=== PATIENT | male | born 1945 | race Caucasian/White ===

== ENCOUNTER 2019-05-06 17:06 | Emergency (ER) | payer MEDICAID, SELFPAY ==
[2019-05-06 17:11] VITALS: BP 153/97; PULSE 115; RESP 22; TEMP 37.3; O2SAT 97
[2019-05-06] MEDS: ONDANSETRON 4 MG/2 ML INJ IV ×2 (17:51→20:16)
[2019-05-06] MEDS: SODIUM CHLORIDE 0.9% 1,000 ML 250 ML IV (17:55)
[2019-05-06 17:56] LABS: Add Manual Diff / Slide Review NO; Basophils Absolute Auto 0 /uL (0-100); Basophils Percent Auto 0.2 % (0-2); Eosinophils Absolute Auto 0 /uL (0-450); Hematocrit 49.8 % (41-53); Hemoglobin 17.3 g/dL (13.5-17.5); Lymphocytes Absolute Auto 1000 /uL (1100-4500); Mean Corpuscular HGB Conc 34.8 % (30-36); Mean Corpuscular Hemoglobin 32.2 PG (26-34); Mean Corpuscular Volume 92.6 fL (80-100); Monocytes Absolute Auto 700 /uL (0-900); Monocytes Percent Auto 4.4 % (3-14); Neutrophils Absolute Auto 14600 /uL (1500-7000); Neutrophils Percent Auto 89.4 % (50-75); Platelet Count 274 X10^3/uL (150-400); Red Blood Cell Count 5.38 X10^6/uL (4.5-5.9); Red Cell Distribution Width 13.7 % (11.6-14.8); White Blood Cell Count 16.4 X10^3/uL (4.5-11.0)
[2019-05-06] MEDS: MORPHINE 4 MG/ML INJ IV (17:56)
[2019-05-06 17:58] LABS: Alanine Aminotransferase 22 IU/L (<50); Albumin 4.4 g/dL (3.5-5.0); Albumin Globulin Ratio 1.1 (1.0-2.8); Alkaline Phosphatase 104 U/L (38-126); Aspartate Aminotransferase 28 IU/L (17-59); BUN Creatinine Ratio 18.6 (6-22); Bilirubin Total 1.5 mg/dL (0.2-1.3); Blood Urea Nitrogen 13 mg/dL (9-20); Calcium 8.9 mg/dL (8.4-10.2); Carbon Dioxide 23 mmol/L (22-32); Chloride 90 mmol/L (98-107); Estimated Glomerular Filt Rate > 60.0 mL/min (>60); Glucose 218 mg/dL (80-110); HEMOLYSIS 17 (0-50); Lipase 30 U/L (23-300); Potassium 3.5 mmol/L (3.4-5.1); Sodium 129 mmol/L (137-145); Total Protein 8.4 g/dL (6.3-8.2)
[2019-05-06 18:00] VITALS: BP 176/97; PULSE 103; RESP 16; O2SAT 97
--- NOTE | 2019-05-06 18:06 | ED_ITS ---
HPI - Abdominal Pain General Chief Complaint: Abdominal Pain Stated Complaint: Nausea, Stomach Pains, Trouble Urinating Time Seen by Provider: 05/06/19 18:05 Source: patient and family Mode of arrival: Ambulatory Limitations: no limitations History of Present Illness HPI narrative: Patient is a 73-year-old male. States he has no medical problems. This is most likely because he does not see a primary provider. T akes no medications. Approximately 10 days ago he had a gradual onset within several hours of confusion, head periods of times where he was hallucinating. No balance issues. Is was hearing voices and seeing people and hearing music. He did not seek medical attention. He is here in the emergency department with his sister who stated that those symptoms lasted approximately 5-7 days and then completely resolved. He has never had anything like them in the past. He denies any drug or alcohol use. For a short period of time during that event he states that he has little memory of the event but another portions he has no memory issues. He is also here because over the past 3 days he has increasing abdominal pain and problems urinating with nausea. No fevers. Related Data Previous Rx's Medication Instructions Recorded famotidine [Pepcid] 20 mg PO DAILY #60 tab 05/06/19 ondansetron 4 mg PO Q6H PRN #10 tab 05/06/19 sucralfate [Carafate] 10 ml PO QID 7 Days #280 ml 05/06/19 Allergies Allergy/AdvReac Type Severity Reaction Status Date / Time No Known Drug Allergies Allergy Verified 05/06/19 17:50 Review of Systems Constitutional Constitutional: Denies fever(s), Denies headache(s) and Denies weakness Eyes Eyes: Denies change in vision and Denies diplopia ENT Ears, Nose, Mouth, and Throat: Denies headache(s), Denies disequilibrium, Denies sinus pressure and Denies sore throat Cardiovascular Cardiovascular: Denies chest pain, Denies syncope and Denies dyspnea Respiratory Respiratory: Denies dyspnea Gastrointestinal Gastrointestinal: Reports abdominal pain, Denies change in stool character, Reports nausea and Denies vomiting Genitourinary Genitourinary: Denies hematuria and Reports difficulty urinating Musculoskeletal Musculoskeletal: Denies abnormal gait, Denies back pain and Denies arthralgias Integumentary/Breasts Skin/Breast: Denies lesions and Denies rash Neurologic Neurologic: Denies abnormal movements, Denies abnormal gait, Reports behavioral changes, Reports confusion, Denies syncope, Denies headache(s), Denies restless legs, Denies paresthesias, Denies disequilibrium and Denies weakness Psychiatric Psychiatric: Denies anxiety, Reports behavioral changes, Reports confusion, Denies depression, Denies irritability, Reports visual hallucinations, Reports hallucinations, Denies homicidal ideation and Denies suicidal ideation Hematologic/Lymphatic Hematologic/Lymphatic: Denies easy bleeding and Denies easy bruising Allergic/Immunologic Allergic/Immunologic: Denies urticaria Patient History Medical History Patient denies medical problems (Acute) alcohol intake frequency: 0-2 drinks per day Alcohol type: wine Exam Initial Vital Signs Initial Vital Signs: Vital Signs Temperature 99.1 F 05/06/19 17:11 Pulse Rate 115 H 05/06/19 17:11 Respiratory Rate 22 05/06/19 17:11 Blood Pressure 153/97 H 05/06/19 17:11 Pulse Oximetry 97 05/06/19 17:11 Const General: cooperative, comfortable, well developed and well groomed Limitations: mental status not altered HENMT Head: normal to inspection and normocephalic Ears: hearing grossly normal bilaterally Eyes Pupils: PERRL Resp Effort & Inspection: normal respiratory effort Auscultation: clear to auscultation bilaterally Cardio Rate: tachycardic Rhythm: regular rhythm GI Inspection: non-distended Palpation: soft, No firm, No guarding and tender (Diffusely tender) Back/Spine/Pelvis Back: No CVA tenderness Skin Lesions: no lesions Rashes: no rashes Neuro General: alert, awake and oriented x3 Cranial Nerves: CN's II-XI intact bilaterally Cognition: normal cognition Speech: speech normal Gait: normal gait Motor: muscle tone normal throughout Sensory Exam: no sensory deficits noted Extrem General: normal to inspection and capillary refill normal Psych Appearance: grossly normal and well kempt Scores GCS [place] coma scale eye opening: Spontaneous Chan coma scale verbal response: Orientated Chan coma scale motor response: Obey commands [place] coma scale total score: 15 Course Orders Ordered: ED Orders 05/06/19 17:16 EKG-12 Lead Stat 05/06/19 17:30 Acetaminophen Stat Ammonia (NH3) Stat Complete Blood Count AUTO DIFF Stat Comprehensive Metabolic Panel Stat Ethanol (ETOH) Stat Lactate (Lactic Acid) Stat Lipase Stat Procalcitonin Stat Thyroid Stimulating Hormone Stat Troponin I Stat 05/06/19 18:07 CT abdomen pelvis w con Stat CT head/brain wo con Stat 05/06/19 19:00 Blood Culture Stat 05/06/19 19:55 XR chest 1V Stat 05/06/19 20:07 Urine Microscopic Stat Discontinued Medications Al Hydrox/Mg Hydrox/Simethicone 20 ml/ Lidocaine HCl 15 ml 0 ml PO NOW ONE Stop: 05/06/19 21:25 Last Admin: 05/06/19 21:34 Dose: 45 ml Documented by: KAYA Sodium Chloride (Normal Saline 0.9%) 1,000 mls @ 250 mls/hr IV BOLUS ONE Stop: 05/06/19 21:53 Last Infusion: 05/06/19 20:24 Dose: 0 mls/hr Documented by: Infusion: 05/06/19 19:15 Dose: 1,000 mls/hr Documented by: Admin: 05/06/19 17:55 Dose: 250 mls/hr Documented by: KAYA Sodium Chloride (Normal Saline 0.9%) 1,000 mls @ 1,000 mls/hr IV BOLUS ONE Stop: 05/06/19 21:11 Last Infusion: 05/06/19 21:31 Dose: 0 mls/hr Documented by: Admin: 05/06/19 20:24 Dose: 1,000 mls/hr Documented by: KAYA Ketorolac Tromethamine (Toradol) 30 mg IV NOW ONE Stop: 05/06/19 20:13 Last Admin: 05/06/19 20:16 Dose: 30 mg Documented by: KAYA Morphine Sulfate (Morphine) 4 mg IV NOW ONE Stop: 05/06/19 17:45 Last Admin: 05/06/19 17:56 Dose: 4 mg Documented by: KAYA Ondansetron HCl (Zofran) 4 mg IV NOW ONE Stop: 05/06/19 17:44 Last Admin: 05/06/19 17:51 Dose: 4 mg Documented by: STACEY Ondansetron HCl (Zofran) 4 mg IV NOW ONE Stop: 05/06/19 20:13 Last Admin: 05/06/19 20:16 Dose: 4 mg Documented by: KAYA Tramadol HCl (Ultram 50mg Prepack) 1 bottle MISC SEEINSTR ONE Stop: 05/06/19 21:27 Last Admin: 05/06/19 21:35 Dose: 1 bottle Documented by: KAYA Vital Signs Vital signs: Vital Signs - 8 hr 05/06/19 18:00 05/06/19 19:00 05/06/19 19:40 Pulse Rate 103 H 99 H 97 H Respiratory Rate 16 18 18 Blood Pressure [Right Arm] 176/97 H 172/94 H 172/92 H Pulse Oximetry 97 98 96 05/06/19 20:04 05/06/19 21:15 Pulse Rate 98 H 90 Respiratory Rate 21 23 Blood Pressure [Right Arm] 178/111 H 122/71 Pulse Oximetry 99 98 MDM - Abdominal Pain Medical Records Attestation: I reviewed the patient's medical records. Lab Data Attestation: I reviewed the patient's lab results. Result diagrams: 05/06/19 17:30 05/06/19 17:30 Labs: Lab Results 05/06/19 05/06/19 05/06/19 Range/Units 17:30 17:30 17:30 WBC 16.4 H (4.5-11.0) X10^3/uL RBC 5.38 (4.5-5.9) X10^6/uL Hgb 17.3 (13.5-17.5) g/dL Hct 49.8 (41-53) % MCV 92.6 (80-100) fL MCH 32.2 (26-34) PG MCHC 34.8 (30-36) % RDW 13.7 (11.6-14.8) % Plt Count 274 (150-400) X10^3/uL Neut % (Auto) 89.4 H (50-75) % Lymph % (Auto) 6.0 L (25-40) % [place] % (Auto) 4.4 (3-14) % Eos % (Auto) 0.0 L (2-4) % Baso % (Auto) 0.2 (0-2) % Neut # (Auto) 45472 H (6309-6782) /uL Lymph # (Auto) 1000 L (6901-7028) /uL [place] # (Auto) 700 (0-900) /uL Eos # (Auto) 0 (0-450) /uL Baso # (Auto) 0 (0-100) /uL Sodium 129 L (137-145) mmol/L Potassium 3.5 (3.4-5.1) mmol/L Chloride 90 L (98-107) mmol/L Carbon Dioxide 23 (22-32) mmol/L BUN 13 (9-20) mg/dL Creatinine 0.70 (0.66-1.25) mg/dL Estimated GFR > 60.0 (>60) mL/min BUN/Creatinine Ratio 18.6 (6-22) Glucose 218 H (80-110) mg/dL Lactate (0.7-2.1) mmol/L Calcium 8.9 (8.4-10.2) mg/dL Total Bilirubin 1.5 H (0.2-1.3) mg/dL AST 28 (17-59) IU/L ALT 22 (<50) IU/L Alkaline Phosphatase 104 (38-126) U/L Ammonia (9-30) umol/L Troponin I < 0.012 (0.01-0.034) ng/mL Total Protein 8.4 H (6.3-8.2) g/dL Albumin 4.4 (3.5-5.0) g/dL Globulin 4.0 (1.7-4.1) g/dL Albumin/Globulin Ratio 1.1 (1.0-2.8) Lipase 30 (23-300) U/L Procalcitonin < 0.05 (<0.5) ng/mL TSH (0.47-4.68) uIU/mL Urine RBC (0-5/HPF) Urine WBC (0-5/HPF) Ur Squamous Epith Cells (0-5/HPF) Urine Bacteria (None) Ur Culture Indicated? Micro UA Comment Acetaminophen (10-30) ug/mL Ethyl Alcohol ( - 10) mg/dL 05/06/19 05/06/19 05/06/19 Range/Units 17:30 17:30 17:30 WBC (4.5-11.0) X10^3/uL RBC (4.5-5.9) X10^6/uL Hgb (13.5-17.5) g/dL Hct (41-53) % MCV (80-100) fL MCH (26-34) PG MCHC (30-36) % RDW (11.6-14.8) % Plt Count (150-400) X10^3/uL Neut % (Auto) (50-75) % Lymph % (Auto) (25-40) % [place] % (Auto) (3-14) % Eos % (Auto) (2-4) % Baso % (Auto) (0-2) % Neut # (Auto) (8701-0757) /uL Lymph # (Auto) (1319-2719) /uL [place] # (Auto) (0-900) /uL Eos # (Auto) (0-450) /uL Baso # (Auto) (0-100) /uL Sodium (137-145) mmol/L Potassium (3.4-5.1) mmol/L Chloride (98-107) mmol/L Carbon Dioxide (22-32) mmol/L BUN (9-20) mg/dL Creatinine (0.66-1.25) mg/dL Estimated GFR (>60) mL/min BUN/Creatinine Ratio (6-22) Glucose (80-110) mg/dL Lactate 2.2 H (0.7-2.1) mmol/L Calcium (8.4-10.2) mg/dL Total Bilirubin (0.2-1.3) mg/dL AST (17-59) IU/L ALT (<50) IU/L Alkaline Phosphatase (38-126) U/L Ammonia < 9.0 L (9-30) umol/L Troponin I (0.01-0.034) ng/mL Total Protein (6.3-8.2) g/dL Albumin (3.5-5.0) g/dL Globulin (1.7-4.1) g/dL Albumin/Globulin Ratio (1.0-2.8) Lipase (23-300) U/L Procalcitonin (<0.5) ng/mL TSH 1.79 (0.47-4.68) uIU/mL Urine RBC (0-5/HPF) Urine WBC (0-5/HPF) Ur Squamous Epith Cells (0-5/HPF) Urine Bacteria (None) Ur Culture Indicated? Micro UA Comment Acetaminophen (10-30) ug/mL Ethyl Alcohol ( - 10) mg/dL 01/05/06/19 05/06/19 Range/Units 17:30 20:07 20:34 WBC (4.5-11.0) X10^3/uL RBC (4.5-5.9) X10^6/uL Hgb (13.5-17.5) g/dL Hct (41-53) % MCV (80-100) fL MCH (26-34) PG MCHC (30-36) % RDW (11.6-14.8) % Plt Count (150-400) X10^3/uL Neut % (Auto) (50-75) % Lymph % (Auto) (25-40) % [place] % (Auto) (3-14) % Eos % (Auto) (2-4) % Baso % (Auto) (0-2) % Neut # (Auto) (4320-7477) /uL Lymph # (Auto) (8751-2723) /uL [place] # (Auto) (0-900) /uL Eos # (Auto) (0-450) /uL Baso # (Auto) (0-100) /uL Sodium (137-145) mmol/L Potassium (3.4-5.1) mmol/L Chloride (98-107) mmol/L Carbon Dioxide (22-32) mmol/L BUN (9-20) mg/dL Creatinine (0.66-1.25) mg/dL Estimated GFR (>60) mL/min BUN/Creatinine Ratio (6-22) Glucose (80-110) mg/dL Lactate 1.9 (0.7-2.1) mmol/L Calcium (8.4-10.2) mg/dL Total Bilirubin (0.2-1.3) mg/dL AST (17-59) IU/L ALT (<50) IU/L Alkaline Phosphatase (38-126) U/L Ammonia (9-30) umol/L Troponin I (0.01-0.034) ng/mL Total Protein (6.3-8.2) g/dL Albumin (3.5-5.0) g/dL Globulin (1.7-4.1) g/dL Albumin/Globulin Ratio (1.0-2.8) Lipase (23-300) U/L Procalcitonin (<0.5) ng/mL TSH (0.47-4.68) uIU/mL Urine RBC 0-1/hpf (0-5/HPF) Urine WBC 0-1/hpf (0-5/HPF) Ur Squamous Epith Cells 0-1 /hpf (0-5/HPF) Urine Bacteria None seen (None) Ur Culture Indicated? Cult not indicated Micro UA Comment Microscopic normal Acetaminophen < 10 L (10-30) ug/mL Ethyl Alcohol < 10 ( - 10) mg/dL Point of care testing: Urine Dip Bedside Urine Glucose 250 mg/dl Bedside Urine Bilirubin - Negative Bedside Urine Ketone +++ 80 Urine Specific [place] 1.005 Bedside Urine Occult Blood +/- Bedside Urine pH 6.5 Bedside Urine Protein + 30 Bedside Urine Urobilinogen - Negative Bedside Urine Nitrite - Negative Bedside Urine Leukocytes - Negative Esterase Imaging Data CT scan - abdomen/pelvis: Radiologist's Impression: [address] [address] [address] Scan Report Signed Patient: Jony Mayen RMR#: [id number] : 5Acct:[id number] Age/Sex: 73 / MDate of Service: 05/06/19 Loc: ED Accession Number: [id number] Procedure: CT abdomen pelvis w con Ordering Provider: Chris Navarro D.O. PROCEDURE: CT ABDOMEN PELVIS W CON INDICATIONS: Diffuse abdominal pain TECHNIQUE: After the administration of intravenous contrast, 5 mm thick sections acquired from the diaphragm to the symphysis. 5 mm coronal and sagittal reformats were acquired. For radiation dose reduction, the following was used: automated exposure control, adjustment of mA and/or kV according to patient size. COMPARISON: None. FINDINGS: Image quality: Excellent. ABDOMEN: Lung bases: 6 mm diameter nodule within the right posterior lung base is present.. Heart size is normal. Solid organs: Liver is normal in size and enhancement. Hepatic contour is slightly nodular, suggestive of cirrhosis. Gallbladder is within normal limits. Biliary system is non dilated. Pancreas enhances normally. Spleen is normal in size and enhancement. No adrenal nodules. Kidneys demonstrate normal size and enhancement, without hydronephrosis. Peritoneum and bowel: Distal esophagus is thickened, and there is a small amount of surrounding fluid. Stomach and small bowel are grossly unremarkable. Appendix is normal.: Is within normal limits. No free fluid or air. Nodes and vessels: No retroperitoneal or mesenteric adenopathy by size criteria. Aorta and inferior vena cava are normal in size. Miscellaneous: No ventral hernias. PELVIS: Genitourinary: Bladder wall thickness is normal. Miscellaneous: No inguinal hernias or adenopathy. Bones: No suspicious bony lesions. No vertebral body compression fractures. IMPRESSION: 1. Indeterminate right lung base nodule. Followup is recommended as below. 2. Findings suggestive of esophagitis. Clinical correlation recommended. 3. Normal appendix. 4. Findings suggestive of cirrhosis. Clinical correlation recommended. Fleischner Society criteria for SOLID lung nodule followup. Nodule size (mm)Low-risk patientHigh-risk patient?4No follow-up neededFollow-up at 12 mo; if no change, no further follow-up>[id number] CT at 12 mo; if no change, no further follow-up needed.Initial follow-up CT at 6-12 mo, then 18-24 mo if no change. >6-8Initial follow-up CT at 6-12 mo, then 18-24 mo if no change. Initial follow- up CT at 3-6 mo, then 9-12 mo and 24 mo if no change. >8Follow-up CT at 3, 9, 24 mo. Or PET and/or biopsy.Same as for low-risk pts. Dictated by: Eloy Welch M.D. on 05/06/2019 at 18:31 Approved by: Eloy Welch M.D. on 05/06/2019 at 18:34 CT scan - head: Radiologist's Impression: [place] [address] CT Scan Report Signed Patient: Jony Mayen RMR#: [id number] : 5Acct:[id number] Age/Sex: 73 / MDate of Service: 05/06/19 Loc: ED Accession Number: [id number] Procedure: CT head/brain wo con Ordering Provider: Chris Navarro D.O. PROCEDURE: CT HEAD/BRAIN WO CON INDICATIONS: Confusion TECHNIQUE: Noncontrast 4.5 mm thick angled axial sections acquired from the foramen magnum to the vertex, with coronal and sagittal reformats. For radiation dose reduction, the following was used: automated exposure control, adjustment of mA and/or kV according to patient size. COMPARISON: None. FINDINGS: Image quality: Excellent. CSF spaces: Basal cisterns are patent. No extra-axial fluid collections. The ventricles are symmetric in size and shape. Brain: No intracranial bleeds or masses. There is cerebral volume loss for a ge, with resultant ventricular and sulcal prominence. There are periventricular and deep white matter chronic small vessel ischemic changes. There is intracranial internal carotid artery atherosclerosis. Skull and face: Calvarium and visualized facial bones appear intact, without suspicious lesions. Sinuses: Visualized sinuses and mastoids are clear. IMPRESSION: No acute intracranial abnormality. Dictated by: Eloy Welch M.D. on 05/06/2019 at 18:30 Approved by: Eloy Welch M.D. on 05/06/2019 at 18:31 Chest x-ray: Radiologist's Impression: [place] [address] XRay Report Signed Patient: Jony Mayen RMR#: [id number] : 5Acct:[id number] Age/Sex: 73 / MDate of Service: 05/06/19 Loc: ED Accession Number: [id number] Procedure: XR chest 1V Ordering Provider: Chris Navarro D.O. PROCEDURE: XR CHEST 1V INDICATIONS: eval for Pneumonia TECHNIQUE: One view of the chest was acquired. COMPARISON: None. FINDINGS: Surgical changes and devices: None. Lungs and pleura: Lungs are clear. No pleural effusions or pneumothorax. Mediastinum: Mediastinal contours appear normal. Heart size is normal. Bones and chest wall: No suspicious bony lesions. Overlying soft tissues appear unremarkable. IMPRESSION: No acute process. Dictated by: Eloy Welch M.D. on 05/06/2019 at 20:17 Approved by: Eloy Welch M.D. on 05/06/2019 at 20:18 ECG Data Attestation: I personally reviewed and interpreted this ECG as follows: Prior ECG tracings: not available for review Interpretation: Sinus tachycardia Ventricular rate of 105 Normal axis Normal QRS Normal QTC Nonspecific ST T wave changes MDM Narrative Medical decision making narrative: Patient is nontoxic appearing. S tachycardic and also has a leukocytosis. Lactate initially 2.2 but this improved with fluids. He was never hypotensive. Heart rate also improved with fluids. Chest x-ray is unremarkable. CT scan of the abdomen just shows what appears to be an esophagitis. Upon further questioning of asked him specifically where he was having abdominal pain in the states it was in the epigastric region. I asked if he has ever had any issues with reflux and he states that over the past couple days he has had more heartburn type symptoms. There were no other findings in the CT scan that would explain the leukocytosis or potential infection. Urin alysis is unremarkable. I did inform him of the incidental finding of the lung nodule. Informed him that he did need to follow-up with his primary doctor regarding this. He does not currently have a primary provider. He was provided phone number for the health resource is coronary to the hospital help him establish one. Uncertain the exact etiology of his hallucinations that he was having several days ago. Those have completely resolved. He is alert oriented x3 with a GCS of 15 currently. I have low suspicion for stroke. Low suspicion for CVA. He denies any drug or alcohol use. Physical exam is not consistent with meningitis. Once again he is nontoxic appearing. I feel that we should hold on any antibiotics secondary to a lack of a definitive diagnosis as to any sort of infection. Regard to his esophagitis will start him on Carafate and then start him on an H2 erika. He was given strict return precautions. He was okay with being discharged home. His sister was at bedside for all of these discussions. Discharge Plan Departure Patient Disposition: Home Clinical Impression: Esophagitis, Incidental pulmonary nodule Leukocytosis Qualifiers: Leukocytosis type: unspecified Qualified Code(s): D72.829 - Elevated white blood cell count, unspecified Discharge Date/Time: 05/06/19 21:48 Instructions: DI for Esophagitis Activity Restrictions/Additional Instructions: Tomorrow contact the health resource is coordinator here at the hospital at [phone]. They can help you establish a primary provider. Take the medications as directed. It is important that you may contact the primary provider to follow-up on the incidental pulmonary nodules that were found today. Return to the emergency department for any new or worsening symptoms Prescriptions: New sucralfate [Carafate] 100 mg/mL suspension 10 ml PO QID 7 Days Qty: 280 RF: 0 famotidine [Pepcid] 20 mg tablet 20 mg PO DAILY Qty: 60 RF: 0 ondansetron 4 mg tablet,disintegrating 4 mg PO Q6H PRN (Reason: nausea and vomiting) Qty: 10 RF: 0
[2019-05-06 18:10] LABS: Troponin I < 0.012 ng/mL (0.01-0.034)
[2019-05-06 18:23] LABS: Ammonia (NH3) < 9.0 umol/L (9-30)
[2019-05-06 18:24] LABS: Acetaminophen < 10 ug/mL (10-30); Ethanol (ETOH) < 10 mg/dL; Lactate (Lactic Acid) 2.2 mmol/L (0.7-2.1)
[2019-05-06 18:46] LABS: Procalcitonin < 0.05 ng/mL (<0.5)
[2019-05-06 18:54] LABS: Thyroid Stimulating Hormone 1.79 uIU/mL (0.47-4.68)
[2019-05-06 19:00] VITALS: BP 172/94; PULSE 99; RESP 18; O2SAT 98
[2019-05-06 19:40] VITALS: BP 172/92; PULSE 97; RESP 18; O2SAT 96
--- NOTE | 2019-05-06 19:43 | PC.NURSE ---
Pt's O2 sats fell to 86% while asleep, Put pt on 2L's of O2 Per nurse yoseph Gaffney
--- NOTE | 2019-05-06 19:55 | DI.RAD.S_ITS ---
PROCEDURE: XR CHEST 1V INDICATIONS: eval for Pneumonia TECHNIQUE: One view of the chest was acquired. COMPARISON: None. FINDINGS: Surgical changes and devices: None. Lungs and pleura: Lungs are clear. No pleural effusions or pneumothorax. Mediastinum: Mediastinal contours appear normal. Heart size is normal. Bones and chest wall: No suspicious bony lesions. Overlying soft tissues appear unremarkable. IMPRESSION: No acute process. Dictated by: Eloy Welch M.D. on 05/06/2019 at 20:17 Approved by: Eloy Welch M.D. on 05/06/2019 at 20:18
[2019-05-06 20:04] VITALS: BP 178/111; PULSE 98; RESP 21; O2SAT 99
[2019-05-06 20:13] LABS: Reflexed Lactate in 2 Hours Y
[2019-05-06] MEDS: KETOROLAC 60 MG/2 ML VIAL 30 MG IV (20:16)
[2019-05-06 20:18] LABS: Bacteria Urine None Seen
[2019-05-06] MEDS: SODIUM CHLORIDE 0.9% 1,000 ML 1000 ML IV (20:24)
[2019-05-06 20:27] LABS: Culture Indicated Urine Cult Not Indicated; RBC Urine 0-1/HPF (0-5/HPF); Squamous Epithelial Cell Urine 0-1 /HPF (0-5/HPF); Urine Comments Microscopic Normal; WBC Urine 0-1/HPF (0-5/HPF)
[2019-05-06 20:49] LABS: Lactate 2HR (Lactic Acid Rflx) 1.9 mmol/L (0.7-2.1)
[2019-05-06 21:15] VITALS: BP 122/71; PULSE 90; RESP 23; O2SAT 98
[2019-05-06] MEDS: MAG HYDROX/ALUMINUM/SIMETH SUS 20 ML, LIDOCAINE VISCOUS 2% 15 ML PO (21:34)
[2019-05-06] MEDS: TRAMADOL 50 MG PREPACK 1 BOTTLE MISC (21:35)
== END 2019-05-06 21:48 | disposition home or self-care (01) ==
PROVIDERS: Emergency Medicine; Emergency Provider Emergency Medicine
DX: K20.9 Esophagitis, unspecified (principal); R91.1 Solitary pulmonary nodule; D72.829 Elevated white blood cell count, unspecified; R10.9 Unspecified abdominal pain; R41.0 Disorientation, unspecified; R00.0 Tachycardia, unspecified; R39.198 Other difficulties with micturition; R11.10 Vomiting, unspecified
CPT/HCPCS: 36415; 70450; 71045; 74177; 80053; 80320; 80329; 81003; 81015; 82140; 83605; 83690; 84145; 84443; 84484; 85025; 87040; 93005; 96361; 96374; 96375; 99285; G0480; J1885; J2270; J2405; Q9967

== ENCOUNTER 2019-05-07 17:57 | Observation (INO) | payer MEDICAID, SELFPAY ==
[2019-05-07 18:00] VITALS: BP 201/101; PULSE 105; RESP 24; TEMP 36.6; O2SAT 97
--- NOTE | 2019-05-07 18:10 | ED.ABDPAIN ---
HPI - Abdominal Pain General Chief Complaint: Abdominal Pain Stated Complaint: pain, vomiting Time Seen by Provider: 05/07/19 18:07 Source: patient Mode of arrival: Ambulatory Limitations: no limitations History of Present Illness HPI narrative: 73-year-old male who I evaluated this emergency department approximately 24 hours ago for abdominal pain. Was discharged home with Carafate. Returns this evening for similar symptoms yesterday. He states that after he was discharged home he felt well. He was able to get up overnight take the dog for a walk. He woke up this morning feeling well. Did not eat anything this morning. Ran some errands. Stated that early afternoon he ate some soup and immediately afterwards had return of the epigastric pain that brought him in last evening. Had some significant nausea. He took the medications he was discharged home with to include pain medication and nausea medication and also reflux medication. He states that none of these worked. States the pain is somewhat worse than what it was last evening. Related Data Home Medications Medication Instructions Recorded Confirmed No Known Home Medications 05/07/19 05/07/19 Allergies Allergy/AdvReac Type Severity Reaction Status Date / Time No Known Drug Allergies Allergy Verified 05/06/19 17:50 Review of Systems Constitutional Constitutional: Denies fever(s) and Denies headache(s) ENT Ears, Nose, Mouth, and Throat: Denies headache(s) Cardiovascular Cardiovascular: Denies chest pain and Denies dyspnea Respiratory Respiratory: Denies dyspnea Gastrointestinal Gastrointestinal: Reports abdominal pain, Denies change in stool character, Reports nausea and Denies vomiting Genitourinary Genitourinary: Denies dysuria Musculoskeletal Musculoskeletal: Denies myalgias and Denies arthralgias Integumentary/Breasts Skin/Breast: Denies lesions and Denies rash Neurologic Neurologic: Denies behavioral changes and Denies headache(s) Psychiatric Psychiatric: Denies behavioral changes Hematologic/Lymphatic Hematologic/Lymphatic: Denies easy bleeding and Denies easy bruising Patient History Medical History Patient denies medical problems (Acute) Surgical History No pertinent past surgical history (Acute) Social History household members: other Smoking Status: Former smoker alcohol intake: current Smoking Status: Former smoker alcohol intake frequency: 0-2 drinks per day Alcohol type: wine Substance Use Type: does not use Exam Initial Vital Signs Initial Vital Signs: Vital Signs Temperature 97.8 F 05/07/19 18:00 Pulse Rate 105 H 05/07/19 18:00 Respiratory Rate 24 05/07/19 18:00 Blood Pressure 201/101 H 05/07/19 18:00 Pulse Oximetry 97 05/07/19 18:00 Const General: cooperative, comfortable, well developed and well groomed Nutritional Appearance: overweight Limitations: mental status not altered HENMA Head: normal to inspection Chest Chest: normal inspection of the chest Resp Effort & Inspection: normal respiratory effort Auscultation: clear to auscultation bilaterally Cardio Rate: tachycardic Rhythm: regular rhythm Pulses: radial pulses present GI Inspection: non-distended Palpation: soft, No firm, No guarding and tender Back/Spine/Pelvis Back: No CVA tenderness Skin Lesions: no lesions Rashes: no rashes Neuro General: alert, awake and oriented x3 Cognition: normal cognition Speech: speech normal Extrem General: normal to inspection, capillary refill normal and No edema Psych Appearance: grossly normal and well kempt Scores GCS Chan coma scale eye opening: Spontaneous [place] coma scale verbal response: Orientated [place] coma scale motor response: Obey commands Chan coma scale total score: 15 Course Orders Ordered: ED Orders 05/07/19 18:09 EKG-12 Lead Stat 05/07/19 18:25 Basic Metabolic Panel Stat Complete Blood Count AUTO DIFF Stat Ethanol (ETOH) Stat Hepatic (Liver) Panel Stat Ketones (Beta-Hydroxybutyrate) Stat Lactate (Lactic Acid) Stat Lipase Stat Procalcitonin Stat Troponin I Stat 05/07/19 18:28 US abdomen limited Stat 05/07/19 18:48 Urine Microscopic Stat 05/07/19 19:11 Arterial Blood Gas Stat 05/07/19 19:57 Arterial Blood Gas Stat Acetaminophen (Tylenol) 650 mg PO Q6HR PRN PRN Reason: Fever/Mild Pain (1-3) Bisacodyl (Dulcolax) 10 mg IN DAILY PRN PRN Reason: Constipation Docusate Sodium (Colace) 100 mg PO BID PRN PRN Reason: Constipation Enoxaparin Sodium (Lovenox) 40 mg SUBCUT DAILY DERECK Hydromorphone HCl (Dilaudid) 0.5 mg IV Q6H PRN PRN Reason: Pain, Moderate (4-6) Hydromorphone HCl (Dilaudid) 1 mg IV Q6HR PRN PRN Reason: Pain, Severe (7-10) Sodium Chloride (Normal Saline 0.9%) 1,000 mls @ 75 mls/hr IV CONT DERECK Last Admin: 05/08/19 01:50 Dose: 75 mls/hr Documented by: SANIA Metoclopramide HCl (Reglan) 10 mg IV Q6HR PRN PRN Reason: Nausea And Vomiting Naloxone HCl (Narcan) 0.2 mg IV Q2MIN PRN PRN Reason: Opiate Reversal Ondansetron HCl (Zofran) 4 mg IV Q6HR PRN PRN Reason: Nausea And Vomiting Last Admin: 05/08/19 00:05 Dose: 4 mg Documented by: SANIA Sodium Chloride (Normal Saline 0.9% Flush) 10 ml IV PRN PRN PRN Reason: Flush Last Admin: 05/08/19 01:50 Dose: 10 ml Documented by: Admin: 05/08/19 00:05 Dose: 10 ml Documented by: SANIA Sodium Chloride (Normal Saline 0.9% Flush) 10 ml IV BID DERECK Discontinued Medications Hydromorphone HCl (Dilaudid) 1 mg IV NOW ONE Stop: 05/07/19 19:28 Last Admin: 05/07/19 19:35 Dose: 1 mg Documented by: GAL Sodium Chloride (Normal Saline 0.9%) 1,000 mls @ 1,000 mls/hr IV BOLUS ONE Stop: 05/07/19 19:07 Last Infusion: 05/07/19 19:46 Dose: 0 mls/hr Documented by: Admin: 05/07/19 18:39 Dose: 1,000 mls/hr Documented by: GAL Metoclopramide HCl (Reglan) 10 mg IV NOW ONE Stop: 05/07/19 20:37 Last Admin: 05/07/19 20:56 Dose: 10 mg Documented by: GAL Morphine Sulfate (Morphine) 4 mg IV NOW ONE Stop: 05/07/19 18:11 Last Admin: 05/07/19 18:32 Dose: 4 mg Documented by: GAL Ondansetron HCl (Zofran) 4 mg IV NOW ONE Stop: 05/07/19 18:09 Last Admin: 05/07/19 18:37 Dose: 4 mg Documented by: GAL Ondansetron HCl (Zofran) 4 mg IV NOW ONE Stop: 05/07/19 19:28 Last Admin: 05/07/19 19:36 Dose: 4 mg Documented by: GAL Vital Signs Vital signs: Vital Signs - 8 hr 05/07/19 18:00 Temperature 97.8 F Pulse Rate 105 H Respiratory Rate 24 Blood Pressure 201/101 H Pulse Oximetry 97 MDM - Abdominal Pain Lab Data Attestation: I reviewed the patient's lab results. Result diagrams: 05/07/19 18:25 05/07/19 18:25 Labs: Lab Results 05/07/19 05/07/19 05/07/19 Range/Units 18:25 18:25 18:25 WBC 13.0 H (4.5-11.0) X10^3/uL RBC 5.39 (4.5-5.9) X10^6/uL Hgb 17.4 (13.5-17.5) g/dL Hct 50.0 (41-53) % MCV 92.8 (80-100) fL MCH 32.2 (26-34) PG MCHC 34.7 (30-36) % RDW 13.6 (11.6-14.8) % Plt Count 250 (150-400) X10^3/uL Neut % (Auto) 86.1 H (50-75) % Lymph % (Auto) 6.9 L (25-40) % Ponce % (Auto) 6.5 (3-14) % Eos % (Auto) 0.1 L (2-4) % Baso % (Auto) 0.4 (0-2) % Neut # (Auto) 70328 H (8849-5348) /uL Lymph # (Auto) 900 L (0569-3187) /uL Ponce # (Auto) 800 (0-900) /uL Eos # (Auto) 0 (0-450) /uL Baso # (Auto) 100 (0-100) /uL ABG pH (7.35-7.45) ABG pCO2 (35-45) mmHg ABG pO2 (80-100) mmHg ABG HCO3 (22-26) mmol/L ABG Total CO2 (21-31) mmol/L ABG O2 Saturation (95-100) % ABG Base Excess (-2-2) mmol/L FiO2 Sodium (137-145) mmol/L Potassium (3.4-5.1) mmol/L Chloride (98-107) mmol/L Carbon Dioxide (22-32) mmol/L BUN (9-20) mg/dL Creatinine (0.66-1.25) mg/dL Estimated GFR (>60) mL/min BUN/Creatinine Ratio (6-22) Glucose (80-110) mg/dL Hemoglobin A1c (4.0-6.0) % Lactate (0.7-2.1) mmol/L Calcium (8.4-10.2) mg/dL Total Bilirubin (0.2-1.3) mg/dL Conjugated Bilirubin (0.0-0.3) md/dL Unconjugated Bilirubin (0.0-1.1) mg/dL AST (17-59) IU/L ALT (<50) IU/L Alkaline Phosphatase (38-126) U/L Troponin I 0.016 (0.01-0.034) ng/mL Total Protein (6.3-8.2) g/dL Albumin (3.5-5.0) g/dL Globulin (1.7-4.1) g/dL Albumin/Globulin Ratio (1.0-2.8) Lipase 49 D (23-300) U/L Procalcitonin < 0.05 (<0.5) ng/mL Urine RBC (0-5/HPF) Urine WBC (0-5/HPF) Ur Squamous Epith Cells (0-5/HPF) Urine Bacteria (None) Ur Culture Indicated? Ethyl Alcohol < 10 ( - 10) mg/dL Ketones (<0.27) mmol/L 05/07/19 05/07/19 05/07/19 Range/Units 18:25 18:25 18:25 WBC (4.5-11.0) X10^3/uL RBC (4.5-5.9) X10^6/uL Hgb (13.5-17.5) g/dL Hct (41-53) % MCV (80-100) fL MCH (26-34) PG MCHC (30-36) % RDW (11.6-14.8) % Plt Count (150-400) X10^3/uL Neut % (Auto) (50-75) % Lymph % (Auto) (25-40) % Ponce % (Auto) (3-14) % Eos % (Auto) (2-4) % Baso % (Auto) (0-2) % Neut # (Auto) (4048-8622) /uL Lymph # (Auto) (6166-3327) /uL Ponce # (Auto) (0-900) /uL Eos # (Auto) (0-450) /uL Baso # (Auto) (0-100) /uL ABG pH (7.35-7.45) ABG pCO2 (35-45) mmHg ABG pO2 (80-100) mmHg ABG HCO3 (22-26) mmol/L ABG Total CO2 (21-31) mmol/L ABG O2 Saturation (95-100) % ABG Base Excess (-2-2) mmol/L FiO2 Sodium 132 L (137-145) mmol/L Potassium 3.6 (3.4-5.1) mmol/L Chloride 94 L (98-107) mmol/L Carbon Dioxide 23 (22-32) mmol/L BUN 16 (9-20) mg/dL Creatinine 0.80 (0.66-1.25) mg/dL Estimated GFR > 60.0 (>60) mL/min BUN/Creatinine Ratio 20.0 (6-22) Glucose 192 H (80-110) mg/dL Hemoglobin A1c 7.4 H (4.0-6.0) % Lactate 1.6 (0.7-2.1) mmol/L Calcium 8.9 (8.4-10.2) mg/dL Total Bilirubin 1.5 H (0.2-1.3) mg/dL Conjugated Bilirubin 0.0 (0.0-0.3) md/dL Unconjugated Bilirubin 1.1 (0.0-1.1) mg/dL AST 33 (17-59) IU/L ALT 23 (<50) IU/L Alkaline Phosphatase 86 (38-126) U/L Troponin I (0.01-0.034) ng/mL Total Protein 8.7 H (6.3-8.2) g/dL Albumin 4.5 (3.5-5.0) g/dL Globulin 4.2 H (1.7-4.1) g/dL Albumin/Globulin Ratio 1.1 (1.0-2.8) Lipase (23-300) U/L Procalcitonin (<0.5) ng/mL Urine RBC (0-5/HPF) Urine WBC (0-5/HPF) Ur Squamous Epith Cells (0-5/HPF) Urine Bacteria (None) Ur Culture Indicated? Ethyl Alcohol ( - 10) mg/dL Ketones 2.72 H (<0.27) mmol/L 05/07/19 05/07/19 Range/Units 18:48 19:57 WBC (4.5-11.0) X10^3/uL RBC (4.5-5.9) X10^6/uL Hgb (13.5-17.5) g/dL Hct (41-53) % MCV (80-100) fL MCH (26-34) PG MCHC (30-36) % RDW (11.6-14.8) % Plt Count (150-400) X10^3/uL Neut % (Auto) (50-75) % Lymph % (Auto) (25-40) % Ponce % (Auto) (3-14) % Eos % (Auto) (2-4) % Baso % (Auto) (0-2) % Neut # (Auto) (3704-7191) /uL Lymph # (Auto) (7609-1900) /uL Ponce # (Auto) (0-900) /uL Eos # (Auto) (0-450) /uL Baso # (Auto) (0-100) /uL ABG pH 7.39 (7.35-7.45) ABG pCO2 41.2 (35-45) mmHg ABG pO2 75 L (80-100) mmHg ABG HCO3 25 (22-26) mmol/L ABG Total CO2 26 (21-31) mmol/L ABG O2 Saturation 95 (95-100) % ABG Base Excess 0.0 (-2-2) mmol/L FiO2 0.21 Sodium (137-145) mmol/L Potassium (3.4-5.1) mmol/L Chloride (98-107) mmol/L Carbon Dioxide (22-32) mmol/L BUN (9-20) mg/dL Creatinine (0.66-1.25) mg/dL Estimated GFR (>60) mL/min BUN/Creatinine Ratio (6-22) Glucose (80-110) mg/dL Hemoglobin A1c (4.0-6.0) % Lactate (0.7-2.1) mmol/L Calcium (8.4-10.2) mg/dL Total Bilirubin (0.2-1.3) mg/dL Conjugated Bilirubin (0.0-0.3) md/dL Unconjugated Bilirubin (0.0-1.1) mg/dL AST (17-59) IU/L ALT (<50) IU/L Alkaline Phosphatase (38-126) U/L Troponin I (0.01-0.034) ng/mL Total Protein (6.3-8.2) g/dL Albumin (3.5-5.0) g/dL Globulin (1.7-4.1) g/dL Albumin/Globulin Ratio (1.0-2.8) Lipase (23-300) U/L Procalcitonin (<0.5) ng/mL Urine RBC 0-1/hpf (0-5/HPF) Urine WBC 0-1/hpf (0-5/HPF) Ur Squamous Epith Cells 0-1 /hpf (0-5/HPF) Urine Bacteria None seen (None) Ur Culture Indicated? Cult not indicated Ethyl Alcohol ( - 10) mg/dL Ketones (<0.27) mmol/L Point of care testing: Urine Dip Bedside Urine Glucose 500 mg/dl Bedside Urine Bilirubin - Negative Bedside Urine Ketone +++ 80 Urine Specific [place] 1.020 Bedside Urine Occult Blood + Bedside Urine pH 6.0 Bedside Urine Protein + 30 Bedside Urine Urobilinogen - Negative Bedside Urine Nitrite - Negative Bedside Urine Leukocytes - Negative Esterase Imaging Data US - abdomen: Radiologist's Impression: [address] [address] Ultrasound Report Signed Patient: Jony Mayen RMR#: [id number] : 5Acct:[id number] Age/Sex: 73 / MDate of Service: 05/07/19 Loc: ED Accession Number: [id number] Procedure: US abdomen limited Ordering Provider: Chris Navarro D.O. PROCEDURE: US ABDOMEN LIMITED INDICATIONS: RIGHT UPPER QUADRANT PAIN TECHNIQUE: Real-time scanning was performed of the abdominal and retroperitoneal organs, with image documentation. COMPARISON: [facility], CT, CT ABDOMEN PELVIS W CON, 05/06/2019, 18:12. FINDINGS: Liver: Imaged portions of the liver appear normal in size and homogeneous in echotexture. Gallbladder: Gallbladder is normal in sonographic appearance without gallstones, gallbladder wall thickening, pericholecystic fluid, or abnormal sonographic Neff's. Biliary ducts: Intrahepatic bile ducts are non-dilated. Extrahepatic bile duct caliber measures 6 mm. Normal is 67 mm or less in diameter, or 10 mm or less post-cholecystectomy. Miscellaneous: No free abdominal fluid. IMPRESSION: Unremarkable sonographic evaluation of the liver and gallbladder. No sonographic evidence for acute cholecystitis. Dictated by: Hernan León M.D. on 05/07/2019 at 20:04 Approved by: Hernan León M.D. on 05/07/2019 at 20:07 [facility] Narrative Medical decision making narrative: Patient still has leukocytosis however is slightly better than yesterday. His sodium is also low but improved from yesterday. Patient is hyperglycemic. Has both ketones in his serum and urine. Not acidotic on his ABG. Not consistent with DKA. His LFTs unremarkable. Lipase is unremarkable. Did have a CT scan performed yesterday which showed and esophagitis and no other acute pathology. I did not feel that we needed to repeat that this evening. I did add a right upper quadrant ultrasound to evaluate for any gallbladder issues which was essentially unremarkable. Patient was afebrile. Was tachycardic. Not hypotensive. There is continue concern for potential infection however do not have a definitive source of this. He has no urinary symptoms and his urine was negative yesterday. His lungs are clear. He had a negative chest x-ray yesterday. He has no signs of meningitis. No changes in his skin consistent with cellulitis. He does have upper abdomen specifically epigastric pain. His CT scan has a nodular liver potentially cirrhosis however no ascites. Low suspicion for SBP. Patient is somewhat better after pain medication. Was given fluids. I am unsure the exact etiology of his symptoms. Considered peptic ulcer. Does not appear to be perforated. I feel that we should hold on antibiotics because they do not have a specific source of an infection. I did discuss the case with Dr. Mcgarry with General surgery who had no further input. Did not appear to be a surgical issue. I did discuss the case with NIEVES Gill the night hospitalist. I do feel that given the patient's 2nd presentation in 2 days. His abnormal vital signs, his abnormal lab test, his lack of a primary provider, that admitting him for observation and fluids is not unreasonable. I discussed this with the patient. He expressed understanding and agreement. A1c was ordered after he was discharged. Discharge Plan Departure Patient Disposition: Admitted as Observation Clinical Impression: Esophagitis Abdominal pain Qualifiers: Abdominal location: epigastric Qualified Code(s): R10.13 - Epigastric pain Leukocytosis Qualifiers: Leukocytosis type: unspecified Qualified Code(s): D72.829 - Elevated white blood cell count, unspecified Discharge Date/Time: 05/07/19 22:16 Admit Date/Time: 05/07/19 20:49 Admit Provider: Lux Gill
--- NOTE | 2019-05-07 18:28 | DI.US.S_ITS ---
PROCEDURE: US ABDOMEN LIMITED INDICATIONS: RIGHT UPPER QUADRANT PAIN TECHNIQUE: Real-time scanning was performed of the abdominal and retroperitoneal organs, with image documentation. COMPARISON: [facility], CT, CT ABDOMEN PELVIS W CON, 05/06/2019, 18:12. FINDINGS: Liver: Imaged portions of the liver appear normal in size and homogeneous in echotexture. Gallbladder: Gallbladder is normal in sonographic appearance without gallstones, gallbladder wall thickening, pericholecystic fluid, or abnormal sonographic Neff's. Biliary ducts: Intrahepatic bile ducts are non-dilated. Extrahepatic bile duct caliber measures 6 mm. Normal is 67 mm or less in diameter, or 10 mm or less post-cholecystectomy. Miscellaneous: No free abdominal fluid. IMPRESSION: Unremarkable sonographic evaluation of the liver and gallbladder. No sonographic evidence for acute cholecystitis. Dictated by: Hernan León M.D. on 05/07/2019 at 20:04 Approved by: Hernan León M.D. on 05/07/2019 at 20:07
[2019-05-07] MEDS: MORPHINE 4 MG/ML INJ IV (18:32)
[2019-05-07 18:36] LABS: Add Manual Diff / Slide Review NO; Basophils Absolute Auto 100 /uL (0-100); Basophils Percent Auto 0.4 % (0-2); Eosinophils Absolute Auto 0 /uL (0-450); Eosinophils Percent Auto 0.1 % (2-4); Hemoglobin 17.4 g/dL (13.5-17.5); Lymphocytes Absolute Auto 900 /uL (1100-4500); Lymphocytes Percent Auto 6.9 % (25-40); Mean Corpuscular HGB Conc 34.7 % (30-36); Mean Corpuscular Hemoglobin 32.2 PG (26-34); Mean Corpuscular Volume 92.8 fL (80-100); Monocytes Absolute Auto 800 /uL (0-900); Monocytes Percent Auto 6.5 % (3-14); Neutrophils Absolute Auto 11200 /uL (1500-7000); Neutrophils Percent Auto 86.1 % (50-75); Platelet Count 250 X10^3/uL (150-400); Red Blood Cell Count 5.39 X10^6/uL (4.5-5.9); Red Cell Distribution Width 13.6 % (11.6-14.8)
[2019-05-07] MEDS: ONDANSETRON 4 MG/2 ML INJ IV ×2 (18:37→19:36)
[2019-05-07] MEDS: SODIUM CHLORIDE 0.9% 1,000 ML 1000 ML IV (18:39)
[2019-05-07 18:51] LABS: Bacteria Urine None Seen
[2019-05-07 18:52] LABS: Ethanol (ETOH) < 10 mg/dL; Lipase 49 U/L (23-300)
[2019-05-07 18:53] LABS: Alanine Aminotransferase 23 IU/L (<50); Albumin 4.5 g/dL (3.5-5.0); Albumin Globulin Ratio 1.1 (1.0-2.8); Alkaline Phosphatase 86 U/L (38-126); Aspartate Aminotransferase 33 IU/L (17-59); Bilirubin Total 1.5 mg/dL (0.2-1.3); Bilirubin Unconjugated 1.1 mg/dL (0.0-1.1); Blood Urea Nitrogen 16 mg/dL (9-20); Calcium 8.9 mg/dL (8.4-10.2); Carbon Dioxide 23 mmol/L (22-32); Chloride 94 mmol/L (98-107); Estimated Glomerular Filt Rate > 60.0 mL/min (>60); Globulin 4.2 g/dL (1.7-4.1); Glucose 192 mg/dL (80-110); Sodium 132 mmol/L (137-145); Total Protein 8.7 g/dL (6.3-8.2)
[2019-05-07 18:55] LABS: Ketones (Beta-Hydroxybutyrate) 2.72 mmol/L (<0.27); Lactate (Lactic Acid) 1.6 mmol/L (0.7-2.1)
[2019-05-07 18:57] LABS: HEMOLYSIS 112 (0-50); Potassium 3.6 mmol/L (3.4-5.1)
[2019-05-07 19:00] LABS: Culture Indicated Urine Cult Not Indicated; RBC Urine 0-1/HPF (0-5/HPF); Squamous Epithelial Cell Urine 0-1 /HPF (0-5/HPF); WBC Urine 0-1/HPF (0-5/HPF)
[2019-05-07 19:04] LABS: Troponin I 0.016 ng/mL (0.01-0.034)
[2019-05-07 19:15] LABS: Procalcitonin < 0.05 ng/mL (<0.5)
[2019-05-07] MEDS: HYDROMORPHONE 1 MG INJ IV (19:35)
[2019-05-07 20:23] LABS: HCO3 ABG 25 mmol/L (22-26); PCO2 ABG 41.2 mmHg (35-45); PO2 ABG 75 mmHg (80-100); pH ABG 7.39 (7.35-7.45)
[2019-05-07 20:24] LABS: Fractionated Inspired Oxygen 0.21; Oxygen Saturation ABG 95 % (95-100); TCO2 ABG 26 mmol/L (21-31)
[2019-05-07] MEDS: METOCLOPRAMIDE 10 MG/2 ML INJ IV (20:56)
[2019-05-07 21:38] VITALS: BP 134/72; PULSE 92; RESP 16; O2SAT 91
[2019-05-07 22:00] VITALS: BP 130/72; PULSE 98; RESP 20; O2SAT 97
--- NOTE | 2019-05-07 22:23 | PC.ADMIT ---
[facility] Admission Note: The patient,Jony Mayen,73 y/o, was given written information regarding hospital policies, unit procedures and contact persons. Patient's smoking status: Former smoker. Vital Signs - 8 hr 05/07/19 18:00 05/07/19 21:38 05/07/19 22:00 Temperature 97.8 F Pulse Rate 105 H 92 H 98 H Respiratory Rate 24 16 20 Blood Pressure 201/101 H 130/72 Blood Pressure [Right Arm] 134/72 Pulse Oximetry 97 91 97 Patient over from ED via stretcher. Patient was able to ambulate on own and cane to ac bed from stretcher, gait steady. Patient A&O, calm and cooperative.
[2019-05-07 22:24] VITALS: BMI 33.0
[2019-05-07 22:43] VITALS: BP 139/90; PULSE 82; RESP 16; TEMP 36.5; O2SAT 95
[2019-05-07 23:40] VITALS: BP 153/79; PULSE 83; RESP 18; TEMP 36.7; O2SAT 96
[2019-05-08] VITALS (9 sets, daily range): BP systolic 138–166; BP diastolic 69–93; PULSE 76–92; RESP 18–20; TEMP 36.6–37.3; O2SAT 94–96; BMI 33.0
[2019-05-08] MEDS: SODIUM CHLORIDE 0.9% FLUSH 10 ML IV ×2 (00:05→01:50)
[2019-05-08] MEDS: ONDANSETRON 4 MG/2 ML INJ IV (00:05)
--- NOTE | 2019-05-08 00:13 | PC.NURSE ---
Addendum entered by Ana Dowd R.N. 05/08/19 06:21: Patient up to bathroom earlier and then back to bed and nasal swab done for respiratory panel. Shortly after ANIMAL NUTRITION CONSULTANT called to inform that patient was in SVT with rate to 160. Went back to room and patient asymptomatic with stable VS; HR was 92 and BP was 166/89. UOP only 125cc. Wilfredo AUGUSTIN, informed. Addendum entered by Ana Dowd R.N. 05/08/19 05:29: Discussed elevated A1c and glucose from labs with Wilfredo AUGUSTIN. Per CHARLI patient has new onset diabetes but he does not want CBG's checked other than daily with lab draws as is not complicating his health care at this point. Original Note: Patient is alert and oriented. Breath sounds CTA with RA sat of 96%. HR with occasional extra beat; telemetry applied per MD order. Initially denied nausea but prior to leaving room states just starting to feel nauseated so medicated with Zofran. Denies pain. BT present and abdomen is soft and non tender. Denies dysuria, frequency or urgency. Able to move self in bed. At home walks with assistance of cane. SCD's applied to bilateral LE. Fall risk score is high and bed alarm is activated. Patient verbalizes understanding of calling for staff assist prior to getting up.
--- NOTE | 2019-05-08 01:29 | P.HP_ITS ---
History of Present Illness History of Present Illness Date Patient Seen: 05/07/19 Time Patient Seen: 23:50 Chief complaint: pain, vomiting Narrative: Mr. Jony Mayen is a 73-year-old male patient who reports no significant medical history and pertinent surgeries who presents to the ER for the 2nd time in 2 days complaining of abdominal pain the patient was initially seen 05/06/2019 complaining generalized abdominal pain nausea and urinary changes. The patient initially had a lactic acid 2.2 the reduced with fluid resuscitation and negative procalcitonin following workup the patient was noted to be hyperglycemic but found no compelling reasons for admission and the patient states he felt better and therefore was discharged home. Patient was feeling well today until this afternoon when he had a recurrence of the epigastric pain which she describes as mid abdomen and moving up to the epigastrium with associated nausea. His pain and nausea became worse with the eating and was without radiation. He did experience associated headache and lightheadedness both which were transient this. The patient reports no recent travel in the no changes in diet or questionable food sources. The patient additionally reports an episode of 45 days ago of experiencing hallucinations that was concur with an onset of throwing up. He reports that the symptoms cleared after 3 days. The patient has had no recent fevers or chills, denies nasal congestion or sore throat. He denies complaints of chest pain or palpitations. He he reports mild exertional dyspnea. His abdominal pain is described above and has had variable urination with intermittent hesitancy and small volume voiding and typically has nocturia 2-3 times nightly. He denies complaints of constipation or diarrhea. He is independent in his ADLs. Upon arrival to the emergency department patient found to be afebrile with temperature 97.8?, tachycardic at 0 5, hypertensive 201/101, improved to 134/72 while in the emergency department. Respiratory rate is 22 with saturation of 97%. Abdominal ultrasound is unremarkable finding liver, gallbladder and ducts all within normal limits. Chest x-ray completed on 05/06/2019 was negative for acute cardiopulmonary pathology, CT of the completed for confusion on 05/06/2019 was likewise negative for acute intracranial pathology. Twelve lead EKG was obtained which finds sinus tachycardia with a rate of 105, left atrial enlargement, old anterior and inferior [place] but no evidence of ST or T wave changes. On laboratory analyses white count 13 0, hemoglobin of 17.4, hematocrit of 50.0 and platelets of 250. He is mildly hyponatremic at 1:32 a.m. with a potassium of 3.6, BUN of 16 and creatinine 0.8. Has an elevated glucose of 192. Has an elevated total bilirubin of 1.5 with normal transaminases. Lipase is 49. Procalcitonin is less than 0.05 and lactic acid is 1.6. ABGs drawn finding a pH of 7.39, pCO2 41.2, PO2 of 75, bicarb of 25 with a base excess of 0 on room air. Ketones are positive at 2.72. Urinalysis unremarkable. The ER contacted Dr. Mcgarry who has agreed to consult. The patient is admitted to the medicine service for persistent abdominal pain of unknown etiology with nausea and vomiting. Patient History Medical History Patient denies medical problems (Acute) Surgical History No pertinent past surgical history (Acute) Family & Social History Social History: household members other Prior Living Arrangements House Safety & Behavioral: Feels Safe in Current Yes Environment Been Physically Hurt or No Threatened By a Person Suicidal Ideation Description None Suicide Plan Description No Plan Tobacco & Substance use: Smoking Status Former smoker alcohol intake current alcohol intake frequency a few times a week Substance Use Type does not use Comment: Patient is single and currently is in a single family home with his 90-year-old mother. He provides a family history of his father having renal cancer, his mother having fallen and broken have been osteoarthritis no other significant problems. He has a sister who has had breast cancer and another sister with kidney failure, heart disease, heart attack and stent. Smoking: The patient quit smoking 35 years ago before which she smoked approximately 1 pack per day. Alcohol: The patient endorses drinking wine approximately 3 bottles per week. Substance use patient reports using occasional CBD cream. Advanced directives: The patient does not have formal advanced directive but states his wish to be do not resuscitate. He designates his sister Veronique to be his surrogate decision maker. Meds Home Medications and Allergies Home Medications Medication Instructions Recorded Confirmed Type No Known Home Medications 05/07/19 05/07/19 History Allergies Allergy/AdvReac Type Severity Reaction Status Date / Time No Known Drug Allergies Allergy Verified 05/06/19 17:50 Review of Systems Review of Systems Narrative: All systems reviewed and found unremarkable under discussed in the HPI above. Exam Vital Signs (past 8 hours): - 05/07/19 18:00 05/07/19 21:38 05/07/19 22:00 Temperature 97.8 F Pulse Rate 105 H 92 H 98 H Respiratory Rate 24 16 20 Blood Pressure 201/101 H 130/72 Blood Pressure [Right Arm] 134/72 Pulse Oximetry 97 91 97 05/07/19 22:43 05/07/19 23:40 Temperature 97.7 F 98.1 F Pulse Rate 82 83 Respiratory Rate 16 18 Blood Pressure 139/90 153/79 H Blood Pressure [Right Arm] Pulse Oximetry 95 96 Oxygen Delivery Method Room Air Oxygen Flow Rate 0 Narrative Exam Narrative: GENERAL APPEARANCE: well developed, obese, in no acute distress. HEENT: Normocephalic, PERRLA, conjunctiva clear, EOMs intact without nystagmus, no sinus tenderness to percussion, no rhinorrhea, mucous membranes are moist and pink NECK/THYROID: neck supple, no JVD, no thyromegaly, trachea midline. LYMPH NODES: no cervical or supraclavicular lymphadenopathy. SKIN: [place], warm and dry, no visible lesions. HEART: regular rate and rhythm, S1-S2, 1/6 systolic murmur, no rubs or gallops, brisk capillary refill, trace bilateral lower extremity edema LUNGS: Breath sounds are clear to auscultation bilaterally, no coarseness crackles or wheezing, no cough present CHEST: Symmetrical movement, no accessory muscle use, good tidal volume. ABDOMEN: Soft, tympanic to percussion in all quadrants, no abdominal tendernes s, no guarding or peritoneal signs, no organomegaly, no flank or suprapubic tenderness, no pulsatile mass, active bowel tones. EXTREMITIES: moves all extremities, strength is 5/5 and symmetrical, no deformities. NEUROLOGIC: AAO x4, no focal neurologic deficits, sensation intact to light touch. PSYCH: cooperative, appropriate with stable behavior Objective Labs Result Diagrams: 05/07/19 18:25 05/07/19 18:25 Labs: Laboratory Results - last 24 hr 05/07/19 05/07/19 05/07/19 18:25 18:25 18:25 WBC 13.0 H RBC 5.39 Hgb 17.4 Hct 50.0 MCV 92.8 MCH 32.2 MCHC 34.7 RDW 13.6 Plt Count 250 Neut % (Auto) 86.1 H Lymph % (Auto) 6.9 L [place] % (Auto) 6.5 Eos % (Auto) 0.1 L Baso % (Auto) 0.4 Neut # (Auto) 03374 H Lymph # (Auto) 900 L [place] # (Auto) 800 Eos # (Auto) 0 Baso # (Auto) 100 ABG pH ABG pCO2 ABG pO2 ABG HCO3 ABG Total CO2 ABG O2 Saturation ABG Base Excess FiO2 Sodium Potassium Chloride Carbon Dioxide BUN Creatinine Estimated GFR BUN/Creatinine Ratio Glucose Lactate Calcium Total Bilirubin Conjugated Bilirubin Unconjugated Bilirubin AST ALT Alkaline Phosphatase Troponin I 0.016 Total Protein Albumin Globulin Albumin/Globulin Ratio Lipase 49 D Procalcitonin < 0.05 Urine RBC Urine WBC Ur Squamous Epith Cells Urine Bacteria Ur Culture Indicated? Ethyl Alcohol < 10 Ketones 05/07/19 05/07/19 05/07/19 18:25 18:25 18:48 WBC RBC Hgb Hct MCV MCH MCHC RDW Plt Count Neut % (Auto) Lymph % (Auto) [place] % (Auto) Eos % (Auto) Baso % (Auto) Neut # (Auto) Lymph # (Auto) [place] # (Auto) Eos # (Auto) Baso # (Auto) ABG pH ABG pCO2 ABG pO2 ABG HCO3 ABG Total CO2 ABG O2 Saturation ABG Base Excess FiO2 Sodium 132 L Potassium 3.6 Chloride 94 L Carbon Dioxide 23 BUN 16 Creatinine 0.80 Estimated GFR > 60.0 BUN/Creatinine Ratio 20.0 Glucose 192 H Lactate 1.6 Calcium 8.9 Total Bilirubin 1.5 H Conjugated Bilirubin 0.0 Unconjugated Bilirubin 1.1 AST 33 ALT 23 Alkaline Phosphatase 86 Troponin I Total Protein 8.7 H Albumin 4.5 Globulin 4.2 H Albumin/Globulin Ratio 1.1 Lipase Procalcitonin Urine RBC 0-1/hpf Urine WBC 0-1/hpf Ur Squamous Epith Cells 0-1 /hpf Urine Bacteria None seen Ur Culture Indicated? Cult not indicated Ethyl Alcohol Ketones 2.72 H 05/07/19 19:57 WBC RBC Hgb Hct MCV MCH MCHC RDW Plt Count Neut % (Auto) Lymph % (Auto) [place] % (Auto) Eos % (Auto) Baso % (Auto) Neut # (Auto) Lymph # (Auto) [place] # (Auto) Eos # (Auto) Baso # (Auto) ABG pH 7.39 ABG pCO2 41.2 ABG pO2 75 L ABG HCO3 25 ABG Total CO2 26 ABG O2 Saturation 95 ABG Base Excess 0.0 FiO2 0.21 Sodium Potassium Chloride Carbon Dioxide BUN Creatinine Estimated GFR BUN/Creatinine Ratio Glucose Lactate Calcium Total Bilirubin Conjugated Bilirubin Unconjugated Bilirubin AST ALT Alkaline Phosphatase Troponin I Total Protein Albumin Globulin Albumin/Globulin Ratio Lipase Procalcitonin Urine RBC Urine WBC Ur Squamous Epith Cells Urine Bacteria Ur Culture Indicated? Ethyl Alcohol Ketones Assessment & Plan Assessment & Plan narrative: This is a 73-year-old male with 2 days of abdominal abdominal pain that has been recurrent with associated nausea vomiting worsening with food intake. 1. Epigastric abdominal pain, unknown etiology, possible gastritis, present on admission, active -patient reports pain initially beginning mid abdomen localizing to the epigastrium -patient presents with leukocytosis at 13.0, negative procalcitonin, elevated blood sugars at 192, positive ketones a 2.72 raising the question of possible gastroparesis -abdominal ultrasound is unremarkable the the patient has an elevated total bilirubin at 1.5 with normal transaminase. Lipase is normal at 49. -patient received Reglan with improvement in symptoms over Zofran. -Dr. Mcgarry has agreed to consult, we appreciated his evaluation and recommendations. -will obtain H pylori stool antigen. -obtain hemoglobin A1c, CBC, CMP and recheck procalcitonin. 2. Acute hypoxic respiratory failure, present on admission, active. -patient reports worsening exertional dyspnea over the last week more so in the last day. Patient is afebrile, denies chest pain or cough, breath sounds clear on exam without wheeze. -no clinical evidence of heart failure, troponin is within normal range at 0.016. -arterial blood gas reveals a pH of 7.39, PaCO2 of 41.2, PO2 75, bicarb 25 and a base excess of 0. -chest x-ray obtained on 05/06/2019 is unremarkable for acute cardiac or pulmonary pathology. -hypoxemia unknown etiology, will obtain respiratory panel, and recheck troponin. 3. Elevated bilirubin, unknown if acute or chronic, present on admission, active -elevated bilirubin of unknown significance with negative abdominal ultrasound -will recheck liver function with morning labs. VTE prophylaxis: SCDs, Lovenox Diet: Clear liquid IVF: Normal saline 75 cc/hour The patient is admitted to the hospital due to the severity of his symptoms and risk for potential complications and adverse events. The patient is admitted as observation status with expected length of stay to be less than 2 midnights Quality VTE Deep Vein Thrombosis/Pulmonary Embolism Present on Admission: No
[2019-05-08 01:34] LABS: Hemoglobin A1C% w Est Avg Glu 7.4 % (4.0-6.0)
[2019-05-08] MEDS: SODIUM CHLORIDE 0.9% 1,000 ML 75 ML IV ×2 (01:50→16:12)
[2019-05-08 06:33] LABS: Adenovirus Not Detected (Not Detect); Bordetella pertussis Not Detected (Not Detect); Chlamydophila pneumoniae Not Detected (Not Detect); Coronavirus 229E Not Detected (Not Detect); Coronavirus HKU1 Not Detected (Not Detect); Coronavirus NL 63 Not Detected (Not Detect); Coronavirus OC43 Not Detected (Not Detect); Human Metapneumovirus Not Detected (Not Detect); Human Rhinovirus/Enterovirus Not Detected (Not Detect); Influenza A Not Detected (Not Detect); Influenza B Not Detected (Not Detect); Mycoplasma pneumoniae Not Detected (Not Detect); Parainfluenza Virus 1 Not Detected (Not Detect); Parainfluenza Virus 2 Not Detected (Not Detect); Parainfluenza Virus 3 Not Detected (Not Detect); Parainfluenza Virus 4 Not Detected (Not Detect); Respiratory Syncytial Virus Not Detected (Not Detect)
[2019-05-08 06:58] LABS: Add Manual Diff / Slide Review NO; Basophils Absolute Auto 100 /uL (0-100); Basophils Percent Auto 0.6 % (0-2); Eosinophils Absolute Auto 100 /uL (0-450); Eosinophils Percent Auto 1.4 % (2-4); Hematocrit 43.4 % (41-53); Lymphocytes Absolute Auto 2000 /uL (1100-4500); Lymphocytes Percent Auto 19.6 % (25-40); Mean Corpuscular HGB Conc 34.6 % (30-36); Mean Corpuscular Hemoglobin 32.4 PG (26-34); Mean Corpuscular Volume 93.7 fL (80-100); Monocytes Absolute Auto 1100 /uL (0-900); Neutrophils Absolute Auto 6800 /uL (1500-7000); Neutrophils Percent Auto 67.4 % (50-75); Platelet Count 201 X10^3/uL (150-400); Red Blood Cell Count 4.63 X10^6/uL (4.5-5.9); Red Cell Distribution Width 13.8 % (11.6-14.8); White Blood Cell Count 10.2 X10^3/uL (4.5-11.0)
[2019-05-08 07:20] LABS: Alanine Aminotransferase 19 IU/L (<50); Albumin 3.3 g/dL (3.5-5.0); Alkaline Phosphatase 61 U/L (38-126); Aspartate Aminotransferase 18 IU/L (17-59); BUN Creatinine Ratio 21.3 (6-22); Bilirubin Total 0.9 mg/dL (0.2-1.3); Blood Urea Nitrogen 17 mg/dL (9-20); Calcium 8.3 mg/dL (8.4-10.2); Carbon Dioxide 28 mmol/L (22-32); Chloride 98 mmol/L (98-107); Estimated Glomerular Filt Rate > 60.0 mL/min (>60); Globulin 3.3 g/dL (1.7-4.1); Glucose 112 mg/dL (80-110); HEMOLYSIS 19 (0-50); Potassium 3.4 mmol/L (3.4-5.1); Sodium 133 mmol/L (137-145); Total Protein 6.6 g/dL (6.3-8.2)
[2019-05-08 07:23] LABS: Troponin I 0.013 ng/mL (0.01-0.034)
[2019-05-08] MEDS: ENOXAPARIN 40 MG/0.4 ML SYRINGE SUBCUT (10:05)
--- NOTE | 2019-05-08 15:11 | CM.DANOTE ---
Patient is a 73 year old male who was admitted on 05/07/19 for Pain and vomiting. Pt has MCR for insurance and his PCP is not listed. EMR was reviewed. Per MD, pt to have consult with Surgeon to determine if anything further needed with his gallbladder and also to have EGD for likely tomorrow. Per RN, pt with likely new dx of diabetes and will see how pt tolerates food prior to EGD prep late tonight. SW met bedside with pt and family and explained role and pt confirms that he shows as Private Pay because he has Medicare but does not know his Medicare number and did not have his card on him. Pt lives at home and is primary CG to his elderly mother in her 90's. Pt is independent with ADL's at baseline, drives, and does not use DME for ambulation. Pt has local supportive 2 sisters and a brother who are currently helping to care for their mother at home while pt is admitted. Pt confirms he has had little need for doctor or hospital care and denies any hx of HH or SNF. Plan: SW to follow closely after EGD tomorrow to determine if pt can safely d/c home with family support and any further identified discharge planning needs. JENNIFER Singleton Discharge Planning/Care Management CM Discharge Assessment Start: 05/08/19 15:09 Freq: Status: Active Protocol: Document 05/08/19 15:10 BF (Rec: 05/08/19 15:11 BF [id number]) Discharge Planning Assessment Assigned Systems Technician SUJEY Walter Advance Directives? No Advance Directives on File No History Provided By Patient,Family Member,Medical Record Has Patient been admitted in last 30 No days? Prior Living Arrangements House Household Members other Comment Lives at home with 90 yo mother Type of transporation used prior to Drives own vehicle admit Independent with ADL's Yes Is patient alert and oriented? Yes Caregiver for Another Yes: elderly mother Comment Waiting for EGD to determine any d/c needs Discharge Plan Home Transportation Arrangement Family can provide transport home Whiteboard Updated in Patient Room with Yes name and ext. # of Systems Technician Review Status In Process Please Provide Date Initial DC 05/08/19 Assessment Was Performed Next Review Type Continued Stay Review
--- NOTE | 2019-05-08 15:53 | P.PN_ITS ---
Subjective Subjective Date Patient Seen: 05/08/19 Interval history: Patient is 73-year-old male admitted with recurrent upper abdominal pain and vomiting over the past 2 weeks. He is not having symptoms this morning though only on clear liquid diet. Exam Vital Signs (past 8 hours): - 05/08/19 08:00 05/08/19 08:55 05/08/19 12:05 Temperature 98.3 F Pulse Rate 76 Respiratory Rate 18 Blood Pressure 161/93 H Pulse Oximetry 96 96 96 05/08/19 13:01 05/08/19 15:34 Temperature 98.4 F 99.1 F Pulse Rate 84 81 Respiratory Rate 19 20 Blood Pressure 154/81 H 142/77 H Pulse Oximetry 95 96 Oxygen Delivery Method Room Air Oxygen Flow Rate 0 Objective Labs Result Diagrams: 05/08/19 06:40 05/08/19 06:40 Labs: Laboratory Results - last 24 hr 05/07/19 05/07/19 05/07/19 18:25 18:25 18:25 WBC 13.0 H RBC 5.39 Hgb 17.4 Hct 50.0 MCV 92.8 MCH 32.2 MCHC 34.7 RDW 13.6 Plt Count 250 Neut % (Auto) 86.1 H Lymph % (Auto) 6.9 L [place] % (Auto) 6.5 Eos % (Auto) 0.1 L Baso % (Auto) 0.4 Neut # (Auto) 01192 H Lymph # (Auto) 900 L [place] # (Auto) 800 Eos # (Auto) 0 Baso # (Auto) 100 ABG pH ABG pCO2 ABG pO2 ABG HCO3 ABG Total CO2 ABG O2 Saturation ABG Base Excess FiO2 Sodium Potassium Chloride Carbon Dioxide BUN Creatinine Estimated GFR BUN/Creatinine Ratio Glucose Hemoglobin A1c Lactate Calcium Total Bilirubin Conjugated Bilirubin Unconjugated Bilirubin AST ALT Alkaline Phosphatase Troponin I 0.016 Total Protein Albumin Globulin Albumin/Globulin Ratio Lipase 49 D Procalcitonin < 0.05 Urine RBC Urine WBC Ur Squamous Epith Cells Urine Bacteria Ur Culture Indicated? Ethyl Alcohol < 10 Ketones Chlamy pneumoniae PCR Adenovirus (PCR) B.parapertussis DNA PCR Coronavirus OC43 (PCR) Coronavirus HKU1 (PCR) Coronavirus 229E (PCR) Coronavirus NL63 (PCR) Human Metapneumovir PCR Influenza Type A (PCR) Influenza Type B (PCR) M. pneumoniae (PCR) Parainfluenza 1 (PCR) Parainfluenza 2 (PCR) Parainfluenza 3 (PCR) Parainfluenza 4 (PCR) RSV (PCR) Entero/Rhino (PCR) 05/07/19 05/07/19 05/07/19 18:25 18:25 18:25 WBC RBC Hgb Hct MCV MCH MCHC RDW Plt Count Neut % (Auto) Lymph % (Auto) [place] % (Auto) Eos % (Auto) Baso % (Auto) Neut # (Auto) Lymph # (Auto) [place] # (Auto) Eos # (Auto) Baso # (Auto) ABG pH ABG pCO2 ABG pO2 ABG HCO3 ABG Total CO2 ABG O2 Saturation ABG Base Excess FiO2 Sodium 132 L Potassium 3.6 Chloride 94 L Carbon Dioxide 23 BUN 16 Creatinine 0.80 Estimated GFR > 60.0 BUN/Creatinine Ratio 20.0 Glucose 192 H Hemoglobin A1c 7.4 H Lactate 1.6 Calcium 8.9 Total Bilirubin 1.5 H Conjugated Bilirubin 0.0 Unconjugated Bilirubin 1.1 AST 33 ALT 23 Alkaline Phosphatase 86 Troponin I Total Protein 8.7 H Albumin 4.5 Globulin 4.2 H Albumin/Globulin Ratio 1.1 Lipase Procalcitonin Urine RBC Urine WBC Ur Squamous Epith Cells Urine Bacteria Ur Culture Indicated? Ethyl Alcohol Ketones 2.72 H Chlamy pneumoniae PCR Adenovirus (PCR) B.parapertussis DNA PCR Coronavirus OC43 (PCR) Coronavirus HKU1 (PCR) Coronavirus 229E (PCR) Coronavirus NL63 (PCR) Human Metapneumovir PCR Influenza Type A (PCR) Influenza Type B (PCR) M. pneumoniae (PCR) Parainfluenza 1 (PCR) Parainfluenza 2 (PCR) Parainfluenza 3 (PCR) Parainfluenza 4 (PCR) RSV (PCR) Entero/Rhino (PCR) 05/07/19 05/07/19 05/08/19 18:48 19:57 05:10 WBC RBC Hgb Hct MCV MCH MCHC RDW Plt Count Neut % (Auto) Lymph % (Auto) [place] % (Auto) Eos % (Auto) Baso % (Auto) Neut # (Auto) Lymph # (Auto) [place] # (Auto) Eos # (Auto) Baso # (Auto) ABG pH 7.39 ABG pCO2 41.2 ABG pO2 75 L ABG HCO3 25 ABG Total CO2 26 ABG O2 Saturation 95 ABG Base Excess 0.0 FiO2 0.21 Sodium Potassium Chloride Carbon Dioxide BUN Creatinine Estimated GFR BUN/Creatinine Ratio Glucose Hemoglobin A1c Lactate Calcium Total Bilirubin Conjugated Bilirubin Unconjugated Bilirubin AST ALT Alkaline Phosphatase Troponin I Total Protein Albumin Globulin Albumin/Globulin Ratio Lipase Procalcitonin Urine RBC 0-1/hpf Urine WBC 0-1/hpf Ur Squamous Epith Cells 0-1 /hpf Urine Bacteria None seen Ur Culture Indicated? Cult not indicated Ethyl Alcohol Ketones Chlamy pneumoniae PCR Not detected Adenovirus (PCR) Not detected B.parapertussis DNA PCR Not detected Coronavirus OC43 (PCR) Not detected Coronavirus HKU1 (PCR) Not detected Coronavirus 229E (PCR) Not detected Coronavirus NL63 (PCR) Not detected Human Metapneumovir PCR Not detected Influenza Type A (PCR) Not detected Influenza Type B (PCR) Not detected M. pneumoniae (PCR) Not detected Parainfluenza 1 (PCR) Not detected Parainfluenza 2 (PCR) Not detected Parainfluenza 3 (PCR) Not detected Parainfluenza 4 (PCR) Not detected RSV (PCR) Not detected Entero/Rhino (PCR) Not detected 05/08/19 05/08/19 05/08/19 06:40 06:40 06:40 WBC 10.2 RBC 4.63 Hgb 15.0 Hct 43.4 MCV 93.7 MCH 32.4 MCHC 34.6 RDW 13.8 Plt Count 201 Neut % (Auto) 67.4 Lymph % (Auto) 19.6 L [place] % (Auto) 11.0 Eos % (Auto) 1.4 L Baso % (Auto) 0.6 Neut # (Auto) 6800 Lymph # (Auto) 2000 [place] # (Auto) 1100 H Eos # (Auto) 100 Baso # (Auto) 100 ABG pH ABG pCO2 ABG pO2 ABG HCO3 ABG Total CO2 ABG O2 Saturation ABG Base Excess FiO2 Sodium 133 L Potassium 3.4 Chloride 98 Carbon Dioxide 28 BUN 17 Creatinine 0.80 Estimated GFR > 60.0 BUN/Creatinine Ratio 21.3 Glucose 112 H Hemoglobin A1c Lactate Calcium 8.3 L Total Bilirubin 0.9 Conjugated Bilirubin Unconjugated Bilirubin AST 18 ALT 19 Alkaline Phosphatase 61 Troponin I 0.013 Total Protein 6.6 Albumin 3.3 L Globulin 3.3 Albumin/Globulin Ratio 1.0 Lipase Procalcitonin Urine RBC Urine WBC Ur Squamous Epith Cells Urine Bacteria Ur Culture Indicated? Ethyl Alcohol Ketones Chlamy pneumoniae PCR Adenovirus (PCR) B.parapertussis DNA PCR Coronavirus OC43 (PCR) Coronavirus HKU1 (PCR) Coronavirus 229E (PCR) Coronavirus NL63 (PCR) Human Metapneumovir PCR Influenza Type A (PCR) Influenza Type B (PCR) M. pneumoniae (PCR) Parainfluenza 1 (PCR) Parainfluenza 2 (PCR) Parainfluenza 3 (PCR) Parainfluenza 4 (PCR) RSV (PCR) Entero/Rhino (PCR) Assessment & Plan Assessment & Plan narrative: 1. Epigastric abdominal pain and vomiting, present on admission -symptoms x2 weeks, no regular aspirin or NSAID use -abdominal ultrasound was without gallstones and unremarkable, previous ER visit abdomen and pelvis CT showed distal esophageal thickening suggestive of esophagitis, also slightly nodular liver suggestive of cirrhosis -mild total bilirubin 1.5 is all unconjugated and not suggestive of biliary cholestasis, his AST, ALT and alk-phos are normal -differential diagnosis includes esophagitis, gastritis and peptic ulcer disease; gastroparesis less likely inpatient with relatively mild diabetes -EGD planned for tomorrow, with Dr. Mcgarry -Protonix 40 mg p.o. b.i.d. -diet as tolerated, NPO after midnight, IV fluids -Helicobacter H pylori pending -obtain further history from patient regarding alcohol use 2. Type 2 diabetes, new diagnosis -patient glucose was 218 and 192 on his ER visits, glucose this a.m. 112 -hemoglobin A1c 7.4 indicated above diabetes, he is significantly overweight with BMI 33 -patient provided brief dietary counseling of weight reduction and more regular activity to control blood sugars as well as establishing with PCP who can monitor his diabetes, medication initiation can be deferred at this time as his blood sugar elevations are relatively mild -consult dietitian 3. Acute delirium -patient describes episodes of severe confusion, seeing and imagine things, in the past couple weeks prior to admission and also had episode last night in hospital of seeing an old lady kneeling at his bedside with hands in prayer, currently not describing any hallucinations -not hypoxic and no evidence of any toxicity leading to delirium -monitor for signs of recurrent or worsening delirium 4. Ruled out acute respiratory failure -I do not see evidence in medical documentation to support diagnosis of re spiratory failure, ABG of 75 is slightly low but not supportive of acute respiratory failure, currently patient without complaints of dyspnea, and has no concerning x-ray findings, and his O2 sat is 96% on room, however it is possible he had mild aspiration with a vomiting episode causing him to get transiently short of breath Patient remains under hospital observation for workup of epigastric pain and vomiting and EGD planned for tomorrow. Quality VTE Deep Vein Thrombosis/Pulmonary Embolism Present on Admission: No
--- NOTE | 2019-05-08 16:02 | DIET.PN ---
Dietary Progress Note Assessment: 73y M admitted for abd px c N/V found to have DM2 referred to nutrition for DM ed. Pt attentive and participating in education to introduce DM diet. Pt slightly overwhelmed, but confident he will research further and get a grasp on diet control. Pt endorses diet high in pasta and fruit consumption. Pt is practicing composing meals using hospital menu which has carb counts listed, as well as using the education packet provided by RD. Pt states he has sisters who will help him as well. HT: 177.8cm WT: 104.4kg BMI:33.0 Labs: Na 132 L, BG 192 H, Ketones 2.72 H, A1c 7.4 H Nutrition Diagnosis: undesirable food choices r/t knowledge deficit of dietary reccs aeb pt newly dx DM2 c A1c 7.4, pt thinks pasta and fruit are probably high in carb but unable to explain DM diet in detail. Interventions: 1. Using information sheet, described etiology of DM, BG, A1c, effect of food on these numbers, gastroparesis and complications of uncontrolled BG. 2. Set pt goal of 45g CHO per meal and 15-30g per snack. Diet Order: General EER: 2100kcal (-400kcal for wt loss), 95g PRO (0.9g/kg per elder), 2.9L fluids Monitoring/Evaluations: continue DM ed, pls refer pt to outpatient DSME at c [address] RD CDE
[2019-05-08] MEDS: PANTOPRAZOLE 40 MG TABLET PO (20:37)
--- NOTE | 2019-05-08 21:29 | P.CONS_ITS ---
History of Present Illness Consult details Date Patient Seen: 05/08/19 Chief complaint: pain, vomiting Narrative: This is a 73-year-old man who's admitted to the hospital for abdominal pain and vomiting. S is symptoms have been going on for the past 2 weeks or more where he has attended generalized/epigastric pain not correlated with meals that associated with nonbilious emesis and diarrhea. No history of previous similar symptoms. Has been in the emergency room twice now in the past 2 weeks and both times his workup was fairly unremarkable. CT abdomen pelvis was normal with the exception of perhaps some mild distal esophageal thickening. His laboratory studies on admission WBC 13, Hct 50, TB 1.5, LFTs normal. After fluid resuscitation laboratory studies normalized. This AM he has no abdominal pain is tolerating a clear liquid diet. No history of peptic ulcer disease he i s not using NSAIDs he is a nonsmoker and not a heavy drinker. Meds Home Medications and Allergies Home Medications Medication Instructions Recorded Confirmed Type No Known Home Medications 05/07/19 05/07/19 History Allergies Allergy/AdvReac Type Severity Reaction Status Date / Time No Known Drug Allergies Allergy Verified 05/06/19 17:50 Review of Systems Review of Systems Narrative: A 10 point review of systems is negative except as noted in the HPI Exam Vital Signs (past 8 hours): - 05/08/19 15:34 05/08/19 16:00 05/08/19 19:16 Temperature 99.1 F 98.4 F Pulse Rate 81 85 Respiratory Rate 20 18 Blood Pressure 142/77 H 138/69 Pulse Oximetry 96 96 95 05/08/19 20:00 Temperature Pulse Rate Respiratory Rate Blood Pressure Pulse Oximetry 94 Oxygen Delivery Method Room Air Oxygen Flow Rate 0 Narrative Exam Narrative: General-no acute distress, well nourished HEENT-moist mucous membranes, no scleral icterus Neck-supple, no lymphadenopathy Chest- non labored respirations, clear to auscultation bilaterally Cardiac-regular rate no peripheral edema Abdomen-soft, nontender, non distended Extremities-warm, well perfused Neurological-alert and oriented, no focal deficits Objective Labs Result Diagrams: 05/08/19 06:40 05/08/19 06:40 Labs: Laboratory Results - last 24 hr 05/07/19 05/08/19 05/08/19 18:25 05:10 06:40 WBC 10.2 RBC 4.63 Hgb 15.0 Hct 43.4 MCV 93.7 MCH 32.4 MCHC 34.6 RDW 13.8 Plt Count 201 Neut % (Auto) 67.4 Lymph % (Auto) 19.6 L Republic % (Auto) 11.0 Eos % (Auto) 1.4 L Baso % (Auto) 0.6 Neut # (Auto) 6800 Lymph # (Auto) 2000 Republic # (Auto) 1100 H Eos # (Auto) 100 Baso # (Auto) 100 Sodium Potassium Chloride Carbon Dioxide BUN Creatinine Estimated GFR BUN/Creatinine Ratio Glucose Hemoglobin A1c 7.4 H Calcium Total Bilirubin AST ALT Alkaline Phosphatase Troponin I Total Protein Albumin Globulin Albumin/Globulin Ratio Chlamy pneumoniae PCR Not detected Adenovirus (PCR) Not detected B.parapertussis DNA PCR Not detected Coronavirus OC43 (PCR) Not detected Coronavirus HKU1 (PCR) Not detected Coronavirus 229E (PCR) Not detected Coronavirus NL63 (PCR) Not detected Human Metapneumovir PCR Not detected Influenza Type A (PCR) Not detected Influenza Type B (PCR) Not detected M. pneumoniae (PCR) Not detected Parainfluenza 1 (PCR) Not detected Parainfluenza 2 (PCR) Not detected Parainfluenza 3 (PCR) Not detected Parainfluenza 4 (PCR) Not detected RSV (PCR) Not detected Entero/Rhino (PCR) Not detected 05/08/19 05/08/19 06:40 06:40 WBC RBC Hgb Hct MCV MCH MCHC RDW Plt Count Neut % (Auto) Lymph % (Auto) Republic % (Auto) Eos % (Auto) Baso % (Auto) Neut # (Auto) Lymph # (Auto) Republic # (Auto) Eos # (Auto) Baso # (Auto) Sodium 133 L Potassium 3.4 Chloride 98 Carbon Dioxide 28 BUN 17 Creatinine 0.80 Estimated GFR > 60.0 BUN/Creatinine Ratio 21.3 Glucose 112 H Hemoglobin A1c Calcium 8.3 L Total Bilirubin 0.9 AST 18 ALT 19 Alkaline Phosphatase 61 Troponin I 0.013 Total Protein 6.6 Albumin 3.3 L Globulin 3.3 Albumin/Globulin Ratio 1.0 Chlamy pneumoniae PCR Adenovirus (PCR) B.parapertussis DNA PCR Coronavirus OC43 (PCR) Coronavirus HKU1 (PCR) Coronavirus 229E (PCR) Coronavirus NL63 (PCR) Human Metapneumovir PCR Influenza Type A (PCR) Influenza Type B (PCR) M. pneumoniae (PCR) Parainfluenza 1 (PCR) Parainfluenza 2 (PCR) Parainfluenza 3 (PCR) Parainfluenza 4 (PCR) RSV (PCR) Entero/Rhino (PCR) Assessment & Plan Assessment and plan (1) Abdominal pain: Qualifiers: Abdominal location: epigastric Qualified Code(s): R10.13 - Epigastric pain Current visit: Yes Status: Acute Assessment & Plan narrative: 73-year-old male 2 weeks of intermittent abdominal pain associated with intermittent vomiting and diarrhea, currently nontoxic, afebrile hemodynamically stable. Unclear etiology of abdominal pain. I reviewed his entire workup including CT A/P which is essentially unremarkable except for some mild esophageal stranding, and laboratory studies this morning after hydration are essentially normal, no biliary disease no pancreatitis. Differential for his abdominal pain is broad however does include peptic ulcer disease. Given that he has had several emergency room visits in the past 2 weeks and is now hospitalized I think a esophagoduodenoscopy is indicated. Will plan for tomorrow, 05/09 for EGD. NPO at midnight.
[2019-05-09] VITALS (19 sets, daily range): BP systolic 104–170; BP diastolic 77–100; PULSE 69–84; RESP 11–94; TEMP 36.3–37.2; O2SAT 10–99; BMI 33.8
--- NOTE | 2019-05-09 | PATH_ITS ---
[facility] Accession Number: [id number] . 01 Material submitted: . esophagus, E-G Junction - GE JUNCTION BIOPSY . 01 Clinical history: . PAIN, VOMITING . 02 Diagnosis: Gastroesophageal Junction, Biopsy: Squamocolumnar junction mucosa with mild chronic active inflammation. Negative for intestinal metaplasia by Alcian blue stain. Negative for dysplasia and malignancy. [facility] 05/14/2019 1716 Local . 02 Electronically signed: . Ruth Saunders MD, Pathologist NPI- [id number] . 01 Gross description: . GE JUNCTION BIOPSY: Received in formalin are 3 fragment(s) of jauregui, soft tissue measuring 0.3 x 0.2 x 0.1 cm to 0.2 x 0.2 x 0.2 cm submitted entirely in 1 cassette(s) /QBJ 05/10/2019 0321 Local . 02 Microscopic: . An AB/PAS stain was performed to evaluate for intestinal metaplasia and fungal organisms, respectively, and are both negative. The control stain showed appropriate reactivity. . 02 Pathologist provided ICD-10: R10.13 . 02 CPT . 626607, [id number] Performed at: 01 [facility] [address], [place], [place] [id number] MD Isael Jo MD Phone: [phone] Performed at: 02 [facility] [address] [place], [place] [id number] MD Ruth Saunders MD Phone: [phone]
--- NOTE | 2019-05-09 02:00 | PC.NURSE ---
Patient is alert and oriented. Breath sounds CTA with RA sat of 96%. HR mostly regular with occasional extra beats; last telemetry reading was SR. Denies nausea. BT present and abdomen is soft. Denies dysuria, frequency or urgency with urination. Is able to turn himself in bed. Up to bathroom with cane and SBA; reports some lightheadedness when first getting up. Denies pain. Calf SCD's applied at this time. Fall risk score is high and bed alarm is activated. NPO since 0000 for planned EGD in a.m.
[2019-05-09] MEDS: SODIUM CHLORIDE 0.9% 1,000 ML 75 ML IV (05:22)
[2019-05-09] MEDS: PANTOPRAZOLE 40 MG VIAL IV (06:13)
[2019-05-09] MEDS: BENZOCAINE/MENTHOL 1 LOZ PKT 1 EACH PO ×3 (10:44→13:41)
--- NOTE | 2019-05-09 11:04 | PC.NURSE ---
Addendum entered by Krysten Avila R.N. 05/09/19 14:30: Note in error, wrong Pt. Original Note: Day shift: Dressing changed to [employer] per UVALDO Howard. Op-site w/ no s/s of infection. [place]. Pt is fully dressed now and awaiting his spouse.
--- NOTE | 2019-05-09 14:30 | PC.NURSE ---
Assumed care of Pt mid shift. Pt is taking lozenges PRN, otherwise NPO oral care items provided. IVF infusing. Awaiting EDG @ 1600. Pt is interested in d/c home today after procedure if appropriate to do so. Family in visiting, updated on POC. Call light in reach.
--- NOTE | 2019-05-09 15:45 | CM.DANOTE ---
DCP: continued: case received and discussed in Team Rounds. EGD planned for today with pt now telling RN Krysten that he hopes to d/c to home after the procedure. Review of prior DCP notes show that pt lives with family and has good support. Will check in tomorrow if he remains in the hospital.
--- NOTE | 2019-05-09 16:03 | PM.PREOP ---
Pre-operative Note Interval Note History & Physical reviewed/Exam performed by Physician: Yes Changes to H&P: No ASA Class (for procedural sedation): II
[2019-05-09] MEDS: fentaNYL 250 MCG/5 ML INJ IV (16:04)
[2019-05-09] MEDS: LIDOCAINE 4% SOLN 50 ML 20 ML TOP (16:04)
[2019-05-09] MEDS: MIDAZOLAM 5 MG/5 ML VIAL IV (16:05)
--- NOTE | 2019-05-09 16:16 | PM.OP.ENDO ---
Operative Date/Time/Diagnoses Date of procedure: 05/09/19 Time of procedure: 16:16 Pre-op diagnosis: epigastric pain Post-op diagnosis: other (esophagitis) Procedure & Clinicians Study performed: Esophagoduodenoscopy Same procedure as scheduled: Yes Indications: Epigastric pain Esophagitis Surgeon: Tom Mcgarry Procedure Notes SCOAP/Timeout: Performed Procedure in detail: Patient placed in left lateral decubitus position. Time out was performed. Procedural sedation was administered with Versed and Fentanyl. A bite block was placed. the scope was inserted into the mouth and advanced through the esophagus and into the stomach. The pylorus was intubated and the duodenum was normal. The scope was retroflexed within the stomach and there was a hiatal hernia. No ulcers, or gastritis. The scope was withdrawn into the esophagus the Z line was seen at 40 cm from the incisions. This was esophagitis at the GE junction and 4 random biopsies of the Z line were taken with forceps. Stomach was desufflated and scope removed. Patient tolerated procedure well. Sedation minutes: 6 Findings: other findings (Esophagitis) Specimen(s): other (The GE junction) Complications: none Impression: Esophagitis Post-procedure Recommendations: EGD in 6-8 weeks Plan for aftercare: Continue Omperazole 40 mg QD at discharge. Repeat EGD in 8 weeks. Disposition: same day surgery
--- NOTE | 2019-05-09 17:26 | PC.NURSE ---
Pt returned from EGD. Vitals stable. Pt denies pain.
[2019-05-09] MEDS: SODIUM CHLORIDE 0.9% FLUSH 10 ML IV (17:34)
--- NOTE | 2019-05-09 18:26 | PM.DS.1 ---
History of Present Illness History of Present Illness Chief complaint: pain, vomiting Narrative: Mr. Jony Mayen is a 73-year-old male patient who reports no significant medical history and pertinent surgeries who presents to the ER for the 2nd time in 2 days complaining of abdominal pain the patient was initially seen 05/06/2019 complaining generalized abdominal pain nausea and urinary changes. The patient initially had a lactic acid 2.2 the reduced with fluid resuscitation and negative procalcitonin following workup the patient was noted to be hyperglycemic but found no compelling reasons for admission and the patient states he felt better and therefore was discharged home. Patient was feeling well today until this afternoon when he had a recurrence of the epigastric pain which she describes as mid abdomen and moving up to the epigastrium with associated nausea. His pain and nausea became worse with the eating and was without radiation. He did experience associated headache and lightheadedness both which were transient this. The patient reports no recent travel in the no changes in diet or questionable food sources. The patient additionally reports an episode of 45 days ago of experiencing hallucinations that was concur with an onset of throwing up. He reports that the symptoms cleared after 3 days. The patient has had no recent fevers or chills, denies nasal congestion or sore throat. He denies complaints of chest pain or palpitations. He he reports mild exertional dyspnea. His abdominal pain is described above and has had variable urination with intermittent hesitancy and small volume voiding and typically has nocturia 2-3 times nightly. He denies complaints of constipation or diarrhea. He is independent in his ADLs. Upon arrival to the emergency department patient found to be afebrile with temperature 97.8?, tachycardic at 0 5, hypertensive 201/101, improved to 134/72 while in the emergency department. Respiratory rate is 22 with saturation of 97%. Abdominal ultrasound is unremarkable finding liver, gallbladder and ducts all within normal limits. Chest x-ray completed on 05/06/2019 was negative for acute cardiopulmonary pathology, CT of the completed for confusion on 05/06/2019 was likewise negative for acute intracranial pathology. Twelve lead EKG was obtained which finds sinus tachycardia with a rate of 105, left atrial enlargement, old anterior and inferior CA but no evidence of ST or T wave changes. On laboratory analyses white count 13 0, hemoglobin of 17.4, hematocrit of 50.0 and platelets of 250. He is mildly hyponatremic at 1:32 a.m. with a potassium of 3.6, BUN of 16 and creatinine 0.8. Has an elevated glucose of 192. Has an elevated total bilirubin of 1.5 with normal transaminases. Lipase is 49. Procalcitonin is less than 0.05 and lactic acid is 1.6. ABGs drawn finding a pH of 7.39, pCO2 41.2, PO2 of 75, bicarb of 25 with a base excess of 0 on room air. Ketones are positive at 2.72. Urinalysis unremarkable. The ER contacted Dr. Mcgarry who has agreed to consult. The patient is admitted to the medicine service for persistent abdominal pain of unknown etiology with nausea and vomiting. Discharge Providers Provider Date of admission: 05/07/19 20:49 Discharge Date: 05/09/19 Consults: 05/07/19 23:45 Consult to Discharge Planning Routine Comment: Consult to Physician Routine Comment: Consulting Provider: Tom Mcgarry Reason for consultation: Abdominal pain, epigastric Has provider been notified: Yes 05/08/19 12:36 Consult to Dietitian, Adult Routine Comment: Reason For Exam: new diagnosis diabetes, AIC 7.4, diet education Discharge provider: Nehemias Cassidy MD Summary Hospital Course Discharge Diagnosis: 1. Esophagitis 2. GERD 3. Type 2 diabetes, new diagnosis 4. Obesity 5. Acute delirium Hospital Course: Patient admitted due to recurrent abdominal pain and vomiting for the past 2 weeks. He reports history of heartburn symptoms most days of the week. Dr. Mcgarry was consulted and patient had EGD which showed esophagitis at the GE junction and 4 biopsies were obtained. Patient is going to start on omeprazole [address] Mcgarry is recommending a repeat EGD in 6-8 weeks. Patient is also provided dietary guidance on reducing heartburn such as limiting caffeine and alcohol and avoiding high fat foods and not eating within 3 hours prior to bedtime. Patient also was noted to have mild elevation of blood sugars and has new diagnosis of type 2 diabetes. His hemoglobin A1c is 7.4. He was provided dietary counseling by the dietitian. I have also advised him to try to lose weight, 20-30 lb, and increases daily physical activity. Patient had a couple episodes of acute delirium prior to admission and the 1st night in the hospital he had episode of acute delirium where he saw an old lady kneeling at his bedside with hands in prayer. Patient has not had any altered mentation on day of discharge. Patient does not have PCP but planning to establish with a primary care provider for follow-up hospitalization. He just recently moved back from [place]. Status at Discharge Cognitive/behavioral status at discharge: oriented Functional status at discharge: independent ambulation Overall status at discharge: patient is back to baseline Exam Vital Signs (past 8 hours): - 05/09/19 12:00 05/09/19 13:00 05/09/19 15:15 Temperature 98.4 F 98.6 F Pulse Rate 69 71 Respiratory Rate 18 18 Blood Pressure 150/77 H 148/85 H Pulse Oximetry 97 95 97 05/09/19 15:46 05/09/19 16:22 05/09/19 16:29 Temperature 97.3 F L 98.9 F Pulse Rate 73 75 75 Respiratory Rate 16 16 13 Blood Pressure 170/80 H 164/90 H 147/84 H Pulse Oximetry 99 92 93 05/09/19 16:34 05/09/19 16:39 05/09/19 16:44 Temperature Pulse Rate 72 72 72 Respiratory Rate 14 11 L 13 Blood Pressure 147/84 H 147/83 H 145/83 H Pulse Oximetry 92 92 92 05/09/19 16:55 05/09/19 17:10 05/09/19 17:26 Temperature 97.7 F Pulse Rate 72 84 72 Respiratory Rate 94 H 18 15 Blood Pressure 139/78 104/79 148/100 H Pulse Oximetry 10 L 94 97 05/09/19 17:55 Temperature 98.3 F Pulse Rate 75 Respiratory Rate 18 Blood Pressure 154/93 H Pulse Oximetry 96 Oxygen Delivery Method Room Air Oxygen Flow Rate 0 Objective Labs Result Diagrams: 05/08/19 06:40 05/08/19 06:40 Discharge Plan Discharge Plan Patient Disposition: Home Discharge comment: Your EGD with Dr Mcgarry showed esophagitis (inflammation of the esophagus). There were four biopsies taken and [facility] will contact you in the next week with path results. You have been started on omeprazole [address] Quevedo would like you to have a repeat EGD in 6-8 weeks. Limit alcohol, foods high in fat, too much caffeine, and eating 3 hours before bedtime. You also have new diagnosis of Type 2 diabetes which you will need to have monitored by your physician. You should work on losing weight, 20-30 pounds, and getting more exercise. Discharge orders & Medications Prescriptions: New omeprazole 40 mg capsule,delayed release(DR/EC) 40 mg PO DAILY Qty: 30 RF: 0 Follow up/Referrals: Micky Salas [Other] Diet/Activity/Treatments Diet: Diet as Tolerated Visit Report/Discharge Packet Instructions: Upper GI Endoscopy, DI for Gastroesophageal Reflux Disease (GERD) Discharge Data Attending Provider: Lux Gill Admit Date/Time: 05/07/19 20:49 Quality VTE Deep Vein Thrombosis/Pulmonary Embolism Present on Admission: No
--- NOTE | 2019-05-09 18:45 | PC.NURSE ---
evening Shift/Discharge Note- Patient D/C'ed home per MD. Discharge paperwork and education reviewed with patient and signed. IV line removed and bandaid applied. Patient dressed self and packed up all personal belongings. Patient left via wheelchair with all personal belongings and family via wheelchair to private car.
== END 2019-05-09 18:40 | disposition home or self-care (01) ==
LOC: ED 20:44 → AC 20:50
PROVIDERS: Surgery; Admitting Provider Nurse Practitioner Adult Health; Emergency Provider Emergency Medicine; Visit Provider Nurse Practitioner Adult Health
PROC: 0DJ08ZZ Inspection of Upper Intestinal Tract, Via Natural or Artificial Opening Endoscopic (ICD-10-PCS; CPT 43235; principal; 2019-05-09 16:00)
DX: K20.9 Esophagitis, unspecified (principal); R10.13 Epigastric pain; R11.10 Vomiting, unspecified; K44.9 Diaphragmatic hernia without obstruction or gangrene; K21.9 Gastro-esophageal reflux disease without esophagitis; E11.9 Type 2 diabetes mellitus without complications; E66.9 Obesity, unspecified; R41.0 Disorientation, unspecified
CPT/HCPCS: 43239; 36415; 36600; 76705; 80048; 80053; 80076; 80320; 81003; 81015; 82009; 82805; 83036; 83605; 83690; 84145; 84484; 85025; 87633; 93005; 96360; 96361; 96372; 96374; 96375; 96376; 99232; 99284; 99285; G0378; C9113; J1170; J1650; J2250; J2270; J2405; J2765; J3010

== ENCOUNTER 2019-06-01 11:06 | Emergency (ER) | payer MEDICARE, MEDICAID, SELFPAY ==
[2019-06-01] VITALS (8 sets, daily range): BP systolic 190–242; BP diastolic 86–128; PULSE 82–91; RESP 17–26; TEMP 37; O2SAT 96–99
--- NOTE | 2019-06-01 11:41 | DI.RAD.S_ITS ---
PROCEDURE: XR CHEST 1V INDICATIONS: epigastric pain TECHNIQUE: One view of the chest was acquired. COMPARISON: [facility], CR, XR CHEST 1V, 05/06/2019, 20:01. FINDINGS: Surgical changes and devices: None. Lungs and pleura: Aeration of the lungs is similar to the previous exam with perihilar interstitial prominence. No new area of consolidation is identified. There is no pneumothorax or large effusion. Mediastinum: Mediastinal contours appear normal. Heart size is borderline enlarged. There is aortic atherosclerosis. Bones and chest wall: No suspicious bony lesions. Overlying soft tissues appear unremarkable. IMPRESSION: Borderline cardiomegaly without overt heart failure. No definite pneumonia. Dictated by: Brain Palomo M.D. on 06/01/2019 at 11:37 Approved by: Brain Palomo M.D. on 06/01/2019 at 11:38
[2019-06-01] MEDS: LORazepam 2 MG/ML INJ 1 MG IV (12:02)
[2019-06-01] MEDS: ONDANSETRON 4 MG/2 ML INJ IV ×2 (12:02→13:47)
[2019-06-01] MEDS: PANTOPRAZOLE 40 MG VIAL IV (12:02)
--- NOTE | 2019-06-01 12:15 | ED_ITS ---
HPI - Abdominal Pain <HÉCTOR De La CruzBC - Last Filed: 06/01/19 18:17> General Chief Complaint: Abdominal Pain Stated Complaint: abd pain Time Seen by Provider: 06/01/19 11:27 Source: patient and family Mode of arrival: Ambulatory Limitations: no limitations History of Present Illness HPI narrative: The patient is a 73-year-old male former smoker with history of esophagitis who presents with a chief complaint of abdominal pain for the past 3 hours. He states that he has had increased stress at home, nausea vomiting and epigastric pain. He states that this is consistent with his previous visit to this emergency department. He was seen last month, received 2 sets of lab work, as well as abdominal ultrasound, abdominal pelvis CT chest x-ray and head CT. The patient states he does not want to repeat imaging again at this point. He states he takes omeprazole every day, but does not take anything else. He denies any fevers, chest pain or shortness of breath. He states that the pain radiates up from his epigastric area, and feels like a burning sensation. He states he is scheduled to have another scope done in July. He does not see a primary care provider and states he does not think he needs to see one. He tried to take a Zofran tablet but vomited it up. The patient does endorse significant stress at home, feels as though anxiety might be contributing to his symptoms. Related Data Previous Rx's Medication Instructions Recorded omeprazole 40 mg PO DAILY #30 cap 05/09/19 hydroxyzine HCl 50 mg PO TID PRN #20 tab 06/01/19 metoclopramide HCl [Reglan] 10 mg PO Q6H PRN #14 tab 06/01/19 sucralfate [Carafate] 10 ml PO QID 10 Days #400 ml 06/01/19 Allergies Allergy/AdvReac Type Severity Reaction Status Date / Time No Known Drug Allergies Allergy Verified 05/06/19 17:50 Review of Systems <ELLIOTT De La Cruz - Last Filed: 06/01/19 18:17> Review of Systems Narrative: GENERAL: Denies chills, fatigue, malaise, fever, sweats. HEENT: Denies sinus pain, ear pain, sore throat, difficulty swallowing, dizziness. RESPIRATORY: Denies dyspnea, cough, wheezing, hemoptysis, sputum. CARDIOVASCULAR: Denies chest pain, palpitations, orthopnea, edema, GASTROINTESTINAL: See HPI : Denies dysuria, frequency, incontinence, hematuria, urinary retention. MUSCULOSKELETAL: denies weakness, joint pain, or bony pain SKIN: Denies rash, skin lesions, or other NEUROLOGIC: Denies weakness, headache, numbness, change in speech, confusion, seizures, incoordination. PSYCHIATRIC: No concerning psychosocial issues. 12 point review of systems is negative except for those stated above Patient History <ELLIOTT De La Cruz - Last Filed: 06/01/19 18:17> Medical History (Updated 06/01/19 @ 15:41 by ELLIOTT De La Cruz) Patient denies medical problems (Acute) Surgical History (Updated 06/01/19 @ 12:18 by ELLIOTT De La Cruz) History of hernia surgery (Acute) No pertinent past surgical history (Acute) Social History household members: other Smoking Status: Former smoker alcohol intake: current Smoking Status: Former smoker alcohol intake frequency: a few times a week Alcohol type: wine Substance Use Type: does not use Exam <ELLIOTT De La Cruz - Last Filed: 06/01/19 18:17> Narrative Exam Narrative: GENERAL: Elderly male, holding vomit bag HEAD: Atraumatic. Normocephalic. No temporal or scalp tenderness. EYES: Pupils equal round and reactive. Extraocular motions intact. No scleral icterus. No injection or drainage. ENT: Nose without bleeding, purulent drainage or septal hematoma. Throat without erythema, tonsillar hypertrophy or exudate. Uvula midline. Airway patent. NECK: Trachea midline. No JVD or lymphadenopathy. Supple, nontender, no meningeal signs. CARDIOVASCULAR: Regular rate and rhythm RESPIRATORY: Clear to auscultation. Breath sounds equal bilaterally. No wheezes, rales, or rhonchi. No cough. No increased respiratory effort. No accessory muscle use. GASTROINTESTINAL: Abdomen soft epigastric tenderness to palpation, active bowel sounds all 4 quadrants nondistended. No hepato-splenomegaly, or palpable masses. No guarding. EXTREMITIES: No clubbing, cyanosis, or edema. No joint tenderness, effusion, or edema noted. BACK: Nontender without deformity or crepitance. No flank tenderness. NEURO: AOx3. SKIN: No rash or erythema on visible skin Initial Vital Signs Initial Vital Signs: Vital Signs Temperature 98.6 F 06/01/19 11:20 Pulse Rate 86 06/01/19 11:20 Respiratory Rate 26 H 06/01/19 11:20 Blood Pressure 225/116 H 06/01/19 11:20 Pulse Oximetry 99 06/01/19 11:20 <Davie Serna DO - Last Filed: 06/01/19 18:40> Initial Vital Signs Initial Vital Signs: Vital Signs Temperature 98.6 F 06/01/19 11:20 Pulse Rate 86 06/01/19 11:20 Respiratory Rate 26 H 06/01/19 11:20 Blood Pressure 225/116 H 06/01/19 11:20 Pulse Oximetry 99 06/01/19 11:20 Course <MEGHANA De La Cruz-BC - Last Filed: 06/01/19 18:17> Orders Ordered: ED Orders 06/01/19 11:41 XR chest 1V Stat EKG-12 Lead Stat 06/01/19 12:00 Amylase Stat Complete Blood Count AUTO DIFF Stat Comprehensive Metabolic Panel Stat Lipase Stat Troponin & CK Cardiac Panel Stat 06/01/19 12:48 Partial Thromboplastin Time Stat Prothrombin Time INR Stat 06/01/19 14:30 Urine Microscopic Stat Discontinued Medications Al Hydrox/Mg Hydrox/Simethicone 20 ml/ Lidocaine HCl 15 ml 0 ml PO NOW ONE Stop: 06/01/19 12:34 Last Admin: 06/01/19 12:52 Dose: 15 ml Documented by: QUITA Hydromorphone HCl (Dilaudid) 0.5 mg IV NOW ONE Stop: 06/01/19 11:42 Last Admin: 06/01/19 14:11 Dose: 0.5 mg Documented by: QUITA Hydroxyzine Pamoate (Vistaril) 50 mg PO NOW ONE Stop: 06/01/19 14:04 Last Admin: 06/01/19 14:11 Dose: 50 mg Documented by: QUITA Sodium Chloride (Normal Saline 0.9%) 1,000 mls @ 1,000 mls/hr IV BOLUS ONE Stop: 06/01/19 13:56 Last Infusion: 06/01/19 15:51 Dose: 0 mls/hr Documented by: Admin: 06/01/19 14:12 Dose: 1,000 mls/hr Documented by: QUITA Lorazepam (Ativan) 1 mg IV NOW ONE Stop: 06/01/19 11:53 Last Admin: 06/01/19 12:02 Dose: 1 mg Documented by: QUITA Metoclopramide HCl (Reglan) 10 mg IV NOW ONE Stop: 06/01/19 14:04 Last Admin: 06/01/19 14:11 Dose: 10 mg Documented by: QUITA Ondansetron HCl (Zofran) 4 mg IV NOW ONE Stop: 06/01/19 11:42 Last Admin: 06/01/19 12:02 Dose: 4 mg Documented by: QUITA Ondansetron HCl (Zofran) 4 mg IV NOW ONE Stop: 06/01/19 13:38 Last Admin: 06/01/19 13:47 Dose: 4 mg Documented by: QUITA Pantoprazole Sodium (Protonix) 40 mg IV NOW ONE Stop: 06/01/19 11:48 Last Admin: 06/01/19 12:02 Dose: 40 mg Documented by: QUITA Sucralfate (Carafate) 1 gm PO NOW ONE Stop: 06/01/19 12:59 Last Admin: 06/01/19 13:48 Dose: 1 gm Documented by: QUITA Vital Signs Vital signs: Vital Signs - 8 hr 06/01/19 11:20 06/01/19 12:01 06/01/19 12:25 Temperature 98.6 F Pulse Rate 86 82 86 Respiratory Rate 26 H 26 H 23 Blood Pressure 225/116 H Blood Pressure [Left Arm] 236/104 H 242/102 H Blood Pressure [Right Arm] Pulse Oximetry 99 99 96 06/01/19 12:31 06/01/19 13:00 06/01/19 14:04 Temperature Pulse Rate 91 H 85 86 Respiratory Rate 20 17 17 Blood Pressure Blood Pressure [Left Arm] 233/128 H 221/107 H Blood Pressure [Right Arm] 207/98 H 208/101 H Pulse Oximetry 96 98 96 06/01/19 15:02 06/01/19 15:51 Temperature Pulse Rate 90 87 Respiratory Rate 17 18 Blood Pressure 210/104 H Blood Pressure [Left Arm] Blood Pressure [Right Arm] 190/86 H Pulse Oximetry 98 97 <Davie Serna, DO - Last Filed: 06/01/19 18:40> Orders Ordered: ED Orders 06/01/19 11:41 XR chest 1V Stat EKG-12 Lead Stat 06/01/19 12:00 Amylase Stat Complete Blood Count AUTO DIFF Stat Comprehensive Metabolic Panel Stat Lipase Stat Troponin & CK Cardiac Panel Stat 06/01/19 12:48 Partial Thromboplastin Time Stat Prothrombin Time INR Stat 06/01/19 14:30 Urine Microscopic Stat Discontinued Medications Al Hydrox/Mg Hydrox/Simethicone 20 ml/ Lidocaine HCl 15 ml 0 ml PO NOW ONE Stop: 06/01/19 12:34 Last Admin: 06/01/19 12:52 Dose: 15 ml Documented by: QUITA Hydromorphone HCl (Dilaudid) 0.5 mg IV NOW ONE Stop: 06/01/19 11:42 Last Admin: 06/01/19 14:11 Dose: 0.5 mg Documented by: QUITA Hydroxyzine Pamoate (Vistaril) 50 mg PO NOW ONE Stop: 06/01/19 14:04 Last Admin: 06/01/19 14:11 Dose: 50 mg Documented by: QUITA Sodium Chloride (Normal Saline 0.9%) 1,000 mls @ 1,000 mls/hr IV BOLUS ONE Stop: 06/01/19 13:56 Last Infusion: 06/01/19 15:51 Dose: 0 mls/hr Documented by: Admin: 06/01/19 14:12 Dose: 1,000 mls/hr Documented by: QUITA Lorazepam (Ativan) 1 mg IV NOW ONE Stop: 06/01/19 11:53 Last Admin: 06/01/19 12:02 Dose: 1 mg Documented by: QUITA Metoclopramide HCl (Reglan) 10 mg IV NOW ONE Stop: 06/01/19 14:04 Last Admin: 06/01/19 14:11 Dose: 10 mg Documented by: QUITA Ondansetron HCl (Zofran) 4 mg IV NOW ONE Stop: 06/01/19 11:42 Last Admin: 06/01/19 12:02 Dose: 4 mg Documented by: QUITA Ondansetron HCl (Zofran) 4 mg IV NOW ONE Stop: 06/01/19 13:38 Last Admin: 06/01/19 13:47 Dose: 4 mg Documented by: QUITA Pantoprazole Sodium (Protonix) 40 mg IV NOW ONE Stop: 06/01/19 11:48 Last Admin: 06/01/19 12:02 Dose: 40 mg Documented by: QUITA Sucralfate (Carafate) 1 gm PO NOW ONE Stop: 06/01/19 12:59 Last Admin: 06/01/19 13:48 Dose: 1 gm Documented by: QUITA Vital Signs Vital signs: Vital Signs - 8 hr 06/01/19 11:20 06/01/19 12:01 06/01/19 12:25 Temperature 98.6 F Pulse Rate 86 82 86 Respiratory Rate 26 H 26 H 23 Blood Pressure 225/116 H Blood Pressure [Left Arm] 236/104 H 242/102 H Blood Pressure [Right Arm] Pulse Oximetry 99 99 96 06/01/19 12:31 06/01/19 13:00 06/01/19 14:04 Temperature Pulse Rate 91 H 85 86 Respiratory Rate 20 17 17 Blood Pressure Blood Pressure [Left Arm] 233/128 H 221/107 H Blood Pressure [Right Arm] 207/98 H 208/101 H Pulse Oximetry 96 98 96 06/01/19 15:02 06/01/19 15:51 Temperature Pulse Rate 90 87 Respiratory Rate 17 18 Blood Pressure 210/104 H Blood Pressure [Left Arm] Blood Pressure [Right Arm] 190/86 H Pulse Oximetry 98 97 MDM - Abdominal Pain <ELLIOTT De La Cruz - Last Filed: 06/01/19 18:17> Lab Data Result diagrams: 06/01/19 12:00 06/01/19 12:00 Labs: Lab Results 06/01/19 06/01/19 06/01/19 Range/Units 12:00 12:00 12:48 WBC 9.3 (4.5-11.0) X10^3/uL RBC 4.88 (4.5-5.9) X10^6/uL Hgb 16.2 (13.5-17.5) g/dL Hct 46.2 (41-53) % MCV 94.8 (80-100) fL MCH 33.1 (26-34) PG MCHC 34.9 (30-36) % RDW 13.7 (11.6-14.8) % Plt Count 214 (150-400) X10^3/uL Neut % (Auto) 80.3 H (50-75) % Lymph % (Auto) 11.6 L (25-40) % [place] % (Auto) 6.9 (3-14) % Eos % (Auto) 0.6 L (2-4) % Baso % (Auto) 0.6 (0-2) % Neut # (Auto) 7500 H (8911-1374) /uL Lymph # (Auto) 1100 (0082-4770) /uL [place] # (Auto) 600 (0-900) /uL Eos # (Auto) 100 (0-450) /uL Baso # (Auto) 100 (0-100) /uL PT 12.0 (10.1-12.7) SECONDS INR 1.0 (0.9-1.3) APTT 32 (26.4-36.2) SECONDS Sodium 136 L (137-145) mmol/L Potassium 4.1 (3.4-5.1) mmol/L Chloride 100 (98-107) mmol/L Carbon Dioxide 22 (22-32) mmol/L BUN 17 (9-20) mg/dL Creatinine 0.60 L (0.66-1.25) mg/dL Estimated GFR > 60.0 (>60) mL/min BUN/Creatinine Ratio 28.3 H (6-22) Glucose 178 H (80-110) mg/dL Calcium 9.2 (8.4-10.2) mg/dL Total Bilirubin 1.1 (0.2-1.3) mg/dL AST 35 (17-59) IU/L ALT 22 (<50) IU/L Alkaline Phosphatase 69 (38-126) U/L Total Creatine Kinase 70 (55-170) U/L CK-MB (CK-2) TNP CK-MB (CK-2) Rel Index TNP Troponin I < 0.012 (0.01-0.034) ng/mL Total Protein 8.9 H (6.3-8.2) g/dL Albumin 4.6 (3.5-5.0) g/dL Globulin 4.3 H (1.7-4.1) g/dL Albumin/Globulin Ratio 1.1 (1.0-2.8) Amylase 63 (30-110) U/L Lipase 39 (23-300) U/L Urine RBC (0-5/HPF) Urine WBC (0-5/HPF) Urine Bacteria (None) Ur Culture Indicated? 06/01/19 Range/Units 14:30 WBC (4.5-11.0) X10^3/uL RBC (4.5-5.9) X10^6/uL Hgb (13.5-17.5) g/dL Hct (41-53) % MCV (80-100) fL MCH (26-34) PG MCHC (30-36) % RDW (11.6-14.8) % Plt Count (150-400) X10^3/uL Neut % (Auto) (50-75) % Lymph % (Auto) (25-40) % [place] % (Auto) (3-14) % Eos % (Auto) (2-4) % Baso % (Auto) (0-2) % Neut # (Auto) (4741-2345) /uL Lymph # (Auto) (4131-0522) /uL [place] # (Auto) (0-900) /uL Eos # (Auto) (0-450) /uL Baso # (Auto) (0-100) /uL PT (10.1-12.7) SECONDS INR (0.9-1.3) APTT (26.4-36.2) SECONDS Sodium (137-145) mmol/L Potassium (3.4-5.1) mmol/L Chloride (98-107) mmol/L Carbon Dioxide (22-32) mmol/L BUN (9-20) mg/dL Creatinine (0.66-1.25) mg/dL Estimated GFR (>60) mL/min BUN/Creatinine Ratio (6-22) Glucose (80-110) mg/dL Calcium (8.4-10.2) mg/dL Total Bilirubin (0.2-1.3) mg/dL AST (17-59) IU/L ALT (<50) IU/L Alkaline Phosphatase (38-126) U/L Total Creatine Kinase (55-170) U/L CK-MB (CK-2) CK-MB (CK-2) Rel Index Troponin I (0.01-0.034) ng/mL Total Protein (6.3-8.2) g/dL Albumin (3.5-5.0) g/dL Globulin (1.7-4.1) g/dL Albumin/Globulin Ratio (1.0-2.8) Amylase (30-110) U/L Lipase (23-300) U/L Urine RBC 0-1/hpf (0-5/HPF) Urine WBC 0-1/hpf (0-5/HPF) Urine Bacteria None seen (None) Ur Culture Indicated? Cult not indicated Point of care testing: Urine Dip Bedside Urine Glucose 250 mg/dl Bedside Urine Bilirubin - Negative Bedside Urine Ketone +++ 80 Urine Specific [place] 1.015 Bedside Urine Occult Blood +/- Bedside Urine pH 7.0 Bedside Urine Protein +/- 15 Bedside Urine Urobilinogen - Negative Bedside Urine Nitrite - Negative Bedside Urine Leukocytes - Negative Esterase Imaging Data Chest x-ray: Radiologist's Impression: [address] [place] [id number] XRay Report Signed Patient: Jony Mayen RMR#: [id number] : 5Acct:[id number] Age/Sex: 73 / MDate of Service: 06/01/19 Loc: ED Accession Number: [id number] Procedure: XR chest 1V Ordering Provider: Geneva Ahuja PROCEDURE: XR CHEST 1V INDICATIONS: epigastric pain TECHNIQUE: One view of the chest was acquired. COMPARISON: [facility], , XR CHEST 1V, 05/06/2019, 20:01. FINDINGS: Surgical changes and devices: None. Lungs and pleura: Aeration of the lungs is similar to the previous exam with perihilar interstitial prominence. No new area of consolidation is identified. There is no pneumothorax or large effusion. Mediastinum: Mediastinal contours appear normal. Heart size is borderline e nlarged. There is aortic atherosclerosis. Bones and chest wall: No suspicious bony lesions. Overlying soft tissues appear unremarkable. IMPRESSION: Borderline cardiomegaly without overt heart failure. No definite pneumonia. Dictated by: Brain Palomo M.D. on 06/01/2019 at 11:37 Approved by: Brain Palomo M.D. on 06/01/2019 at 11:38 ECG Data Attestation: I personally reviewed and interpreted this ECG as follows: Interpretation: Ventricular rate 84. P.r. interval 189. QRS 102. viewed by Dr Serna. [facility] Narrative Medical decision making narrative: The patient is a 73-year-old male who presents with a chief complaint of epigastric pain. He states it is chronic in nature, he has seen at this hospital over a month ago for it but it got worse 3 hours prior to arrival. His lab work is grossly normal, with no leukocytosis. Troponin is negative. The patient declines any imaging on initial exam. He was treated with the above-stated therapies and felt much improved. He does note that he believes that his pain is made worse by anxiety. He was able to tolerate p.o. fluids in the emergency department. Again his pain recurred between medications, I offered to get imaging the patient declined. I offered CT abdomen pelvis and ultrasound of the patient stated he did not want to have that again. Given that he has overall normal labs, this pain has been recurring over the past month I am okay with this. I did discuss that he has to come back to the emergency department for any acute concerns, that he should reconsider imaging if needed. Patient has no questions or concerns upon discharge and states understanding of return precautions as well as follow-up care. He was discharged home with his family. <Davie Serna, DO - Last Filed: 06/01/19 18:40> Lab Data Labs: Lab Results 06/01/19 06/01/19 06/01/19 Range/Units 12:00 12:00 12:48 WBC 9.3 (4.5-11.0) X10^3/uL RBC 4.88 (4.5-5.9) X10^6/uL Hgb 16.2 (13.5-17.5) g/dL Hct 46.2 (41-53) % MCV 94.8 (80-100) fL MCH 33.1 (26-34) PG MCHC 34.9 (30-36) % RDW 13.7 (11.6-14.8) % Plt Count 214 (150-400) X10^3/uL Neut % (Auto) 80.3 H (50-75) % Lymph % (Auto) 11.6 L (25-40) % [place] % (Auto) 6.9 (3-14) % Eos % (Auto) 0.6 L (2-4) % Baso % (Auto) 0.6 (0-2) % Neut # (Auto) 7500 H (0261-1593) /uL Lymph # (Auto) 1100 (5925-5215) /uL [place] # (Auto) 600 (0-900) /uL Eos # (Auto) 100 (0-450) /uL Baso # (Auto) 100 (0-100) /uL PT 12.0 (10.1-12.7) SECONDS INR 1.0 (0.9-1.3) APTT 32 (26.4-36.2) SECONDS Sodium 136 L (137-145) mmol/L Potassium 4.1 (3.4-5.1) mmol/L Chloride 100 (98-107) mmol/L Carbon Dioxide 22 (22-32) mmol/L BUN 17 (9-20) mg/dL Creatinine 0.60 L (0.66-1.25) mg/dL Estimated GFR > 60.0 (>60) mL/min BUN/Creatinine Ratio 28.3 H (6-22) Glucose 178 H (80-110) mg/dL Calcium 9.2 (8.4-10.2) mg/dL Total Bilirubin 1.1 (0.2-1.3) mg/dL AST 35 (17-59) IU/L ALT 22 (<50) IU/L Alkaline Phosphatase 69 (38-126) U/L Total Creatine Kinase 70 (55-170) U/L CK-MB (CK-2) TNP CK-MB (CK-2) Rel Index TNP Troponin I < 0.012 (0.01-0.034) ng/mL Total Protein 8.9 H (6.3-8.2) g/dL Albumin 4.6 (3.5-5.0) g/dL Globulin 4.3 H (1.7-4.1) g/dL Albumin/Globulin Ratio 1.1 (1.0-2.8) Amylase 63 (30-110) U/L Lipase 39 (23-300) U/L Urine RBC (0-5/HPF) Urine WBC (0-5/HPF) Urine Bacteria (None) Ur Culture Indicated? 06/01/19 Range/Units 14:30 WBC (4.5-11.0) X10^3/uL RBC (4.5-5.9) X10^6/uL Hgb (13.5-17.5) g/dL Hct (41-53) % MCV (80-100) fL MCH (26-34) PG MCHC (30-36) % RDW (11.6-14.8) % Plt Count (150-400) X10^3/uL Neut % (Auto) (50-75) % Lymph % (Auto) (25-40) % [place] % (Auto) (3-14) % Eos % (Auto) (2-4) % Baso % (Auto) (0-2) % Neut # (Auto) (9736-8861) /uL Lymph # (Auto) (0635-5730) /uL [place] # (Auto) (0-900) /uL Eos # (Auto) (0-450) /uL Baso # (Auto) (0-100) /uL PT (10.1-12.7) SECONDS INR (0.9-1.3) APTT (26.4-36.2) SECONDS Sodium (137-145) mmol/L Potassium (3.4-5.1) mmol/L Chloride (98-107) mmol/L Carbon Dioxide (22-32) mmol/L BUN (9-20) mg/dL Creatinine (0.66-1.25) mg/dL Estimated GFR (>60) mL/min BUN/Creatinine Ratio (6-22) Glucose (80-110) mg/dL Calcium (8.4-10.2) mg/dL Total Bilirubin (0.2-1.3) mg/dL AST (17-59) IU/L ALT (<50) IU/L Alkaline Phosphatase (38-126) U/L Total Creatine Kinase (55-170) U/L CK-MB (CK-2) CK-MB (CK-2) Rel Index Troponin I (0.01-0.034) ng/mL Total Protein (6.3-8.2) g/dL Albumin (3.5-5.0) g/dL Globulin (1.7-4.1) g/dL Albumin/Globulin Ratio (1.0-2.8) Amylase (30-110) U/L Lipase (23-300) U/L Urine RBC 0-1/hpf (0-5/HPF) Urine WBC 0-1/hpf (0-5/HPF) Urine Bacteria None seen (None) Ur Culture Indicated? Cult not indicated Point of care testing: Urine Dip Bedside Urine Glucose 250 mg/dl Bedside Urine Bilirubin - Negative Bedside Urine Ketone +++ 80 Urine Specific [place] 1.015 Bedside Urine Occult Blood +/- Bedside Urine pH 7.0 Bedside Urine Protein +/- 15 Bedside Urine Urobilinogen - Negative Bedside Urine Nitrite - Negative Bedside Urine Leukocytes - Negative Esterase Discharge Plan Departure Patient Disposition: Home Clinical Impression: Anxiety Abdominal pain Qualifiers: Abdominal location: epigastric Qualified Code(s): R10.13 - Epigastric pain Nausea & vomiting Qualifiers: Vomiting type: unspecified Vomiting Intractability: non-intractable Qualified Code(s): R11.2 - Nausea with vomiting, unspecified Discharge Date/Time: 06/01/19 15:53 Instructions: DI for High Blood Pressure, DI for Abdominal Pain-Adult, DI for Anxiety -- Adult, GERD Diet, Nausea and Vomiting-Adult Activity Restrictions/Additional Instructions: As discussed, please follow-up with primary care provider. I have given you contact information to [facility] human resources consultant. They can help you identify a PCP. Please also follow-up with your surgeon. As discussed her blood pressure is high in the emergency department and needs to be monitored. I have sent prescriptions for your pain, nausea, and anxiety to [facility] in [facility]. As discussed, please eat a low acid, low-fat, low caffeine and no alcohol diet. Please avoid spicy foods, deep fried fatty foods, citrus, tomato etcetera. Please eat a bland healthy diet. As discussed, please work on trying to reduce your stress levels. Please remember that you did not want imaging today. If you have any acute concerns, or concern about heart attack, stroke, can't keep down fluids etcetera. Please come back to the emergency department. Please come back to the emergency department for any acute concerns Prescriptions: New sucralfate [Carafate] 100 mg/mL suspension 10 ml PO QID 10 Days Qty: 400 RF: 0 hydroxyzine HCl 50 mg tablet 50 mg PO TID PRN (Reason: anxiety) Qty: 20 RF: 0 metoclopramide HCl [Reglan] 10 mg tablet 10 mg PO Q6H PRN (Reason: nausea and vomiting) Qty: 14 RF: 0 No Action omeprazole 40 mg capsule,delayed release(DR/EC) 40 mg PO DAILY Qty: 30 RF: 0 Referrals: [facility] [Outside]
[2019-06-01 12:23] LABS: Add Manual Diff / Slide Review NO; Basophils Absolute Auto 100 /uL (0-100); Basophils Percent Auto 0.6 % (0-2); Eosinophils Absolute Auto 100 /uL (0-450); Eosinophils Percent Auto 0.6 % (2-4); Hematocrit 46.2 % (41-53); Hemoglobin 16.2 g/dL (13.5-17.5); Lymphocytes Absolute Auto 1100 /uL (1100-4500); Lymphocytes Percent Auto 11.6 % (25-40); Mean Corpuscular HGB Conc 34.9 % (30-36); Mean Corpuscular Hemoglobin 33.1 PG (26-34); Mean Corpuscular Volume 94.8 fL (80-100); Monocytes Absolute Auto 600 /uL (0-900); Monocytes Percent Auto 6.9 % (3-14); Neutrophils Absolute Auto 7500 /uL (1500-7000); Neutrophils Percent Auto 80.3 % (50-75); Platelet Count 214 X10^3/uL (150-400); Red Blood Cell Count 4.88 X10^6/uL (4.5-5.9); Red Cell Distribution Width 13.7 % (11.6-14.8); White Blood Cell Count 9.3 X10^3/uL (4.5-11.0)
[2019-06-01 12:45] LABS: Alanine Aminotransferase 22 IU/L (<50); Amylase 63 U/L (30-110); Chloride 100 mmol/L (98-107); Creatine Kinase 70 U/L (55-170); Estimated Glomerular Filt Rate > 60.0 mL/min (>60)
[2019-06-01] MEDS: MAG HYDROX/ALUMINUM/SIMETH SUS 20 ML, LIDOCAINE VISCOUS 2% 15 ML PO (12:52)
[2019-06-01 12:57] LABS: Troponin I < 0.012 ng/mL (0.01-0.034)
[2019-06-01 13:09] LABS: PTT Partial Thromboplastin Tim 32 SECONDS (26.4-36.2)
[2019-06-01] MEDS: SUCRALFATE 1 GM/10 ML ORAL SUSP PO (13:48)
[2019-06-01 13:49] LABS: Sodium 136 mmol/L (137-145)
[2019-06-01 13:50] LABS: Potassium 4.1 mmol/L (3.4-5.1)
[2019-06-01 13:51] LABS: BUN Creatinine Ratio 28.3 (6-22); Blood Urea Nitrogen 17 mg/dL (9-20); Carbon Dioxide 22 mmol/L (22-32)
[2019-06-01 13:52] LABS: Calcium 9.2 mg/dL (8.4-10.2); Glucose 178 mg/dL (80-110)
[2019-06-01 13:53] LABS: Bilirubin Total 1.1 mg/dL (0.2-1.3)
[2019-06-01 13:54] LABS: Alkaline Phosphatase 69 U/L (38-126); Aspartate Aminotransferase 35 IU/L (17-59)
[2019-06-01 13:55] LABS: Total Protein 8.9 g/dL (6.3-8.2)
[2019-06-01 13:56] LABS: Albumin 4.6 g/dL (3.5-5.0); Albumin Globulin Ratio 1.1 (1.0-2.8); Globulin 4.3 g/dL (1.7-4.1); Lipase 39 U/L (23-300)
[2019-06-01 13:57] LABS: HEMOLYSIS < 16 (0-50)
[2019-06-01] MEDS: METOCLOPRAMIDE 10 MG/2 ML INJ IV (14:11)
[2019-06-01] MEDS: hydrOXYzine pamoate 25 MG CAPSULE 50 MG PO (14:11)
[2019-06-01] MEDS: HYDROMORPHONE 1 MG INJ 0.5 MG IV (14:11)
[2019-06-01] MEDS: SODIUM CHLORIDE 0.9% 1,000 ML 1000 ML IV (14:12)
[2019-06-01 15:03] LABS: Bacteria Urine None Seen
[2019-06-01 15:12] LABS: Culture Indicated Urine Cult Not Indicated; RBC Urine 0-1/HPF (0-5/HPF); WBC Urine 0-1/HPF (0-5/HPF)
--- NOTE | 2019-06-01 15:54 | PC.NURSE ---
Patient declined any further imaging- CT Scan or US with Mary AUGUSTIN at bedside.
== END 2019-06-01 15:53 | disposition home or self-care (01) ==
PROVIDERS: Emergency Provider Nurse Practitioner Family
DX: F41.9 Anxiety disorder, unspecified (principal); R10.13 Epigastric pain; R11.2 Nausea with vomiting, unspecified; I10 Essential (primary) hypertension
CPT/HCPCS: 36415; 71045; 80053; 81003; 81015; 82150; 82550; 83690; 84484; 85025; 85610; 85730; 93005; 96361; 96374; 96375; 96376; 99284; C9113; J1170; J2060; J2405; J2765

== ENCOUNTER → 2019-11-07 06:52 | Outpatient (CLI) | payer MEDICARE, MEDICAID, SELFPAY ==
[2019-11-06 09:12] VITALS: BMI 33.0
[2019-11-07 08:16] LABS: Add Manual Diff / Slide Review NO; Basophils Absolute Auto 100 /uL (0-100); Basophils Percent Auto 1.3 % (0-2); Eosinophils Absolute Auto 300 /uL (0-450); Eosinophils Percent Auto 3.6 % (2-4); Hematocrit 41.3 % (41-53); Hemoglobin 14.1 g/dL (13.5-17.5); Lymphocytes Absolute Auto 1500 /uL (1100-4500); Lymphocytes Percent Auto 21.4 % (25-40); Mean Corpuscular HGB Conc 34.3 % (30-36); Mean Corpuscular Hemoglobin 32.9 PG (26-34); Monocytes Absolute Auto 800 /uL (0-900); Monocytes Percent Auto 10.6 % (3-14); Neutrophils Absolute Auto 4500 /uL (1500-7000); Neutrophils Percent Auto 63.1 % (50-75); Platelet Count 180 X10^3/uL (150-400); Red Cell Distribution Width 14.6 % (11.6-14.8); White Blood Cell Count 7.2 X10^3/uL (4.5-11.0)
[2019-11-07 08:32] LABS: Hemoglobin A1C% w Est Avg Glu 6.8 % (4.0-6.0)
[2019-11-07 08:49] LABS: Alanine Aminotransferase 18 IU/L (<50); Albumin 4.2 g/dL (3.5-5.0); Albumin Globulin Ratio 1.2 (1.0-2.8); Alkaline Phosphatase 56 U/L (38-126); Aspartate Aminotransferase 22 IU/L (17-59); BUN Creatinine Ratio 26.5 (6-22); Bilirubin Total 1.4 mg/dL (0.2-1.3); Blood Urea Nitrogen 18 mg/dL (9-20); Carbon Dioxide 25 mmol/L (22-32); Chloride 106 mmol/L (98-107); Cholesterol 216 mg/dL (140-199); Estimated Glomerular Filt Rate > 60.0 mL/min (>60); Globulin 3.5 g/dL (1.7-4.1); Glucose 150 mg/dL (80-110); HDL Cholesterol 67 mg/dL (40-60); HEMOLYSIS < 15 (0-50); LDL Cholesterol Calculated 137 mg/dL (<100); Potassium 4.5 mmol/L (3.4-5.1); Sodium 138 mmol/L (137-145); Total Protein 7.7 g/dL (6.3-8.2); Triglycerides 61 mg/dL (35-150)
[2019-11-07 09:11] LABS: Thyroid Stimulating Hormone 2.99 uIU/mL (0.47-4.68)
[2019-11-07 16:05] LABS: Vitamin D 25 Hydroxy (D3) < 12.8 ng/mL (30.0-100.0)
== END ==
PROVIDERS: Referring Provider Family Medicine; Visit Provider Family Medicine
DX: E11.9 Type 2 diabetes mellitus without complications (principal); I10 Essential (primary) hypertension; E55.9 Vitamin D deficiency, unspecified
CPT/HCPCS: 36415; 80053; 80061; 82306; 83036; 84443; 85025

== ENCOUNTER → 2020-05-07 10:33 | Outpatient (CLI) | payer MEDICARE, MEDICAID, SELFPAY ==
[2019-11-06 09:12] VITALS: BMI 33.0
[2020-05-07] MEDS: COVID-19 VACC #1, MRNA(MOD) 100 MCG/0.5 ML VIAL IM (11:31)
== END ==
PROVIDERS: PCP Family Medicine; Visit Provider Internal Medicine
DX: Z23 Encounter for immunization (principal)
CPT/HCPCS: 0011A; 91301

== ENCOUNTER → 2020-06-04 10:22 | Outpatient (CLI) | payer MEDICARE, MEDICAID, SELFPAY ==
[2019-11-06 09:12] VITALS: BMI 33.0
[2020-06-04] MEDS: COVID-19 VACC #2, MRNA(MOD) 100 MCG/0.5 ML VIAL IM (10:28)
== END ==
PROVIDERS: PCP Family Medicine; Visit Provider Internal Medicine
DX: Z23 Encounter for immunization (principal)
CPT/HCPCS: 0012A; 91301

== ENCOUNTER → 2020-10-30 11:10 | Outpatient (CLI) | payer MEDICARE, MEDICAID, SELFPAY ==
[2019-11-06 09:12] VITALS: BMI 33.0
[2020-10-30 12:04] LABS: Add Manual Diff / Slide Review NO; Basophils Absolute Auto 100 /uL (0-100); Basophils Percent Auto 1.2 % (0-2); Eosinophils Absolute Auto 300 /uL (0-450); Eosinophils Percent Auto 3.5 % (2-4); Hematocrit 40.5 % (41-53); Hemoglobin 14.1 g/dL (13.5-17.5); Lymphocytes Absolute Auto 1800 /uL (1100-4500); Lymphocytes Percent Auto 23.4 % (25-40); Mean Corpuscular HGB Conc 34.9 % (30-36); Mean Corpuscular Hemoglobin 32.6 PG (26-34); Mean Corpuscular Volume 93.5 fL (80-100); Monocytes Absolute Auto 700 /uL (0-900); Monocytes Percent Auto 8.7 % (3-14); Neutrophils Absolute Auto 5000 /uL (1500-7000); Neutrophils Percent Auto 63.2 % (50-75); Platelet Count 205 X10^3/uL (150-400); Red Blood Cell Count 4.33 X10^6/uL (4.5-5.9); Red Cell Distribution Width 13.5 % (11.6-14.8); White Blood Cell Count 7.9 X10^3/uL (4.5-11.0)
[2020-10-30 12:16] LABS: Hemoglobin A1C% w Est Avg Glu 7.5 % (4.0-6.0)
[2020-10-30 12:17] LABS: Alanine Aminotransferase 22 IU/L (<50); Albumin 4.2 g/dL (3.5-5.0); Albumin Globulin Ratio 1.1 (1.0-2.8); Alkaline Phosphatase 56 U/L (38-126); Aspartate Aminotransferase 22 IU/L (17-59); BUN Creatinine Ratio 28.4 (6-22); Bilirubin Total 0.7 mg/dL (0.2-1.3); Blood Urea Nitrogen 19 mg/dL (9-20); Calcium 9.3 mg/dL (8.4-10.2); Carbon Dioxide 24 mmol/L (22-32); Chloride 109 mmol/L (98-107); Cholesterol 233 mg/dL (140-199); Estimated Glomerular Filt Rate > 60.0 mL/min (>60); Globulin 3.9 g/dL (1.7-4.1); Glucose 160 mg/dL (80-110); HDL Cholesterol 48 mg/dL (40-60); HEMOLYSIS < 15 (0-50); LDL Cholesterol Calculated 165 mg/dL (<100); Potassium 4.1 mmol/L (3.4-5.1); Sodium 139 mmol/L (137-145); Total Protein 8.1 g/dL (6.3-8.2); Triglycerides 99 mg/dL (35-150)
[2020-10-30 12:47] LABS: Prostate Specific Antigen Scrn 0.927 ng/mL (0.1-4.0)
== END ==
PROVIDERS: PCP Family Medicine; Referring Provider Family Medicine; Visit Provider Family Medicine
DX: E11.9 Type 2 diabetes mellitus without complications (principal); Z12.5 Encounter for screening for malignant neoplasm of prostate; R39.9 Unspecified symptoms and signs involving the genitourinary system
CPT/HCPCS: 36415; 80053; 80061; 83036; 85025; G0103

== ENCOUNTER → 2021-02-01 08:59 | Outpatient (CLI) | payer MEDICARE, MEDICAID, SELFPAY ==
[2019-11-06 09:12] VITALS: BMI 33.0
[2021-02-01 10:37] LABS: Cholesterol 115 mg/dL (140-199); HDL Cholesterol 45 mg/dL (40-60); LDL Cholesterol Calculated 53 mg/dL (<100); Triglycerides 85 mg/dL (35-150)
[2021-02-01 11:57] LABS: Hemoglobin A1C% w Est Avg Glu 7.2 % (4.0-6.0)
== END ==
PROVIDERS: PCP Family Medicine; Referring Provider Family Medicine; Visit Provider Family Medicine
DX: E11.9 Type 2 diabetes mellitus without complications (principal); E78.2 Mixed hyperlipidemia; I10 Essential (primary) hypertension
CPT/HCPCS: 36415; 80061; 83036

== ENCOUNTER → 2021-08-03 10:03 | Outpatient (CLI) | payer MEDICARE, MEDICAID, SELFPAY ==
[2019-11-06 09:12] VITALS: BMI 33.0
[2021-08-03 11:23] LABS: Hemoglobin A1C% w Est Avg Glu 7.4 % (4.0-6.0)
[2021-08-03 11:32] LABS: Add Manual Diff / Slide Review NO; Basophils Absolute Auto 100 /uL (0-100); Basophils Percent Auto 1.2 % (0-2); Eosinophils Absolute Auto 400 /uL (0-450); Eosinophils Percent Auto 4.2 % (2-4); Hematocrit 38.3 % (41-53); Hemoglobin 12.9 g/dL (13.5-17.5); Lymphocytes Absolute Auto 2400 /uL (1100-4500); Lymphocytes Percent Auto 26.9 % (25-40); Mean Corpuscular HGB Conc 33.6 % (30-36); Mean Corpuscular Hemoglobin 30.6 PG (26-34); Mean Corpuscular Volume 91.3 fL (80-100); Monocytes Absolute Auto 800 /uL (0-900); Monocytes Percent Auto 8.8 % (3-14); Neutrophils Absolute Auto 5200 /uL (1500-7000); Neutrophils Percent Auto 58.9 % (50-75); Platelet Count 195 X10^3/uL (150-400); Red Cell Distribution Width 13.8 % (11.6-14.8); White Blood Cell Count 8.8 X10^3/uL (4.5-11.0)
[2021-08-03 11:59] LABS: Alanine Aminotransferase 19 IU/L (<50); Albumin 4.1 g/dL (3.5-5.0); Albumin Globulin Ratio 1.1 (1.0-2.8); Alkaline Phosphatase 59 U/L (38-126); Aspartate Aminotransferase 21 IU/L (17-59); BUN Creatinine Ratio 25.6 (6-22); Bilirubin Total 0.8 mg/dL (0.2-1.3); Blood Urea Nitrogen 23 mg/dL (9-20); Calcium 8.9 mg/dL (8.4-10.2); Carbon Dioxide 24 mmol/L (22-32); Chloride 110 mmol/L (98-107); Cholesterol 132 mg/dL (140-199); Estimated Glomerular Filt Rate > 60 mL/min (>60); Globulin 3.8 g/dL (1.7-4.1); Glucose 131 mg/dL (80-110); HDL Cholesterol 42 mg/dL (40-60); HEMOLYSIS < 15 (0-50); LDL Cholesterol Calculated 74 mg/dL (<100); Potassium 4.4 mmol/L (3.4-5.1); Sodium 140 mmol/L (137-145); Total Protein 7.9 g/dL (6.3-8.2); Triglycerides 78 mg/dL (35-150)
== END ==
PROVIDERS: PCP Family Medicine; Referring Provider Family Medicine; Visit Provider Family Medicine
DX: E11.42 Type 2 diabetes mellitus with diabetic polyneuropathy (principal); E78.2 Mixed hyperlipidemia; I10 Essential (primary) hypertension
CPT/HCPCS: 36415; 80053; 80061; 83036; 85025

== ENCOUNTER → 2022-02-08 09:05 | Outpatient (CLI) | payer MEDICARE, MEDICAID, SELFPAY ==
[2019-11-06 09:12] VITALS: BMI 33.0
[2022-02-08 10:45] LABS: Add Manual Diff / Slide Review NO; Basophils Absolute Auto 100 /uL (0-100); Basophils Percent Auto 1.2 % (0-2); Eosinophils Absolute Auto 400 /uL (0-450); Eosinophils Percent Auto 4.9 % (2-4); Hematocrit 38.9 % (41-53); Hemoglobin 13.2 g/dL (13.5-17.5); Lymphocytes Absolute Auto 2100 /uL (1100-4500); Lymphocytes Percent Auto 24.9 % (25-40); Mean Corpuscular HGB Conc 34.1 % (30-36); Mean Corpuscular Hemoglobin 31.3 PG (26-34); Mean Corpuscular Volume 91.8 fL (80-100); Monocytes Absolute Auto 700 /uL (0-900); Neutrophils Absolute Auto 4900 /uL (1500-7000); Platelet Count 202 X10^3/uL (150-400); Red Blood Cell Count 4.23 X10^6/uL (4.5-5.9); Red Cell Distribution Width 13.6 % (11.6-14.8); White Blood Cell Count 8.2 X10^3/uL (4.5-11.0)
[2022-02-08 11:18] LABS: Alanine Aminotransferase 19 IU/L (<50); Albumin 3.9 g/dL (3.5-5.0); Albumin Globulin Ratio 1.1 (1.0-2.8); Alkaline Phosphatase 66 U/L (38-126); Aspartate Aminotransferase 17 IU/L (17-59); BUN Creatinine Ratio 26.3 (6-22); Bilirubin Total 0.6 mg/dL (0.2-1.3); Blood Urea Nitrogen 25 mg/dL (9-20); Carbon Dioxide 23 mmol/L (22-32); Chloride 104 mmol/L (98-107); Cholesterol 121 mg/dL (140-199); Estimated Glomerular Filt Rate > 60 mL/min (>60); Globulin 3.6 g/dL (1.7-4.1); Glucose 135 mg/dL (80-110); HDL Cholesterol 43 mg/dL (40-60); HEMOLYSIS < 15 (0-50); LDL Cholesterol Calculated 66 mg/dL (<100); Potassium 4.7 mmol/L (3.4-5.1); Sodium 138 mmol/L (137-145); Total Protein 7.5 g/dL (6.3-8.2); Triglycerides 61 mg/dL (35-150)
== END ==
PROVIDERS: PCP Family Medicine; Referring Provider Family Medicine; Visit Provider Family Medicine
DX: E11.42 Type 2 diabetes mellitus with diabetic polyneuropathy (principal); B35.1 Tinea unguium; E11.69 Type 2 diabetes mellitus with other specified complication; E78.2 Mixed hyperlipidemia; I10 Essential (primary) hypertension
CPT/HCPCS: 36415; 80053; 80061; 83036; 85025

== ENCOUNTER → 2022-08-12 09:56 | Outpatient (CLI) | payer MEDICARE, MEDICAID, SELFPAY ==
[2019-11-06 09:12] VITALS: BMI 33.0
[2022-08-12 13:24] LABS: Alanine Aminotransferase 20 IU/L (<50); Albumin 3.9 g/dL (3.5-5.0); Alkaline Phosphatase 64 U/L (38-126); Aspartate Aminotransferase 22 IU/L (17-59); BUN Creatinine Ratio 29.4 (6-22); Bilirubin Total 0.7 mg/dL (0.2-1.3); Blood Urea Nitrogen 25 mg/dL (9-20); Calcium 8.7 mg/dL (8.4-10.2); Carbon Dioxide 19 mmol/L (22-32); Chloride 107 mmol/L (98-107); Estimated Glomerular Filt Rate > 60 mL/min (>60); Glucose 157 mg/dL (80-110); HEMOLYSIS 18 (0-50); Potassium 4.5 mmol/L (3.4-5.1); Sodium 136 mmol/L (137-145); Total Protein 7.9 g/dL (6.3-8.2)
[2022-08-15 01:04] LABS: Labcorp Hemoglobin (Hb) A1c 7.8 % (4.8-5.6)
== END ==
PROVIDERS: PCP Family Medicine; Referring Provider Family Medicine; Visit Provider Family Medicine
DX: E11.42 Type 2 diabetes mellitus with diabetic polyneuropathy (principal); I10 Essential (primary) hypertension; R79.9 Abnormal finding of blood chemistry, unspecified
CPT/HCPCS: 36415; 80053; 83036

== ENCOUNTER → 2022-09-29 07:58 | Outpatient (CLI) | payer MEDICARE, MEDICAID, SELFPAY ==
[2019-11-06 09:12] VITALS: BMI 33.0
[2022-09-29 09:41] LABS: HEMOLYSIS < 15 (0-50); Potassium 4.3 mmol/L (3.4-5.1)
== END ==
PROVIDERS: PCP Family Medicine; Referring Provider Family Medicine; Visit Provider Family Medicine
DX: T50 Poisoning by, adverse effect of and underdosing of diuretics and other and unspecified drugs, medicaments and biological substances (principal); T50.1X5A Adverse effect of loop [high-ceiling] diuretics, initial encounter
CPT/HCPCS: 36415; 84132

== ENCOUNTER → 2024-04-26 10:14 | Outpatient (CLI) | payer MEDICARE, MEDICAID, SELFPAY ==
[2019-11-06 09:12] VITALS: BMI 33.0
[2024-04-26 11:12] LABS: Add Manual Diff / Slide Review NO; Basophils Absolute Auto 100 /uL (0-100); Basophils Percent Auto 0.9 % (0-2); Eosinophils Absolute Auto 200 /uL (0-450); Eosinophils Percent Auto 1.9 % (2-4); Hematocrit 41.7 % (41-53); Hemoglobin 13.9 g/dL (13.5-17.5); Lymphocytes Absolute Auto 1900 /uL (1100-4500); Lymphocytes Percent Auto 19.7 % (25-40); Mean Corpuscular HGB Conc 33.3 % (30-36); Mean Corpuscular Hemoglobin 31.9 PG (26-34); Mean Corpuscular Volume 95.9 fL (80-100); Monocytes Absolute Auto 900 /uL (0-900); Monocytes Percent Auto 9.4 % (3-14); Neutrophils Absolute Auto 6700 /uL (1500-7000); Neutrophils Percent Auto 68.1 % (50-75); Platelet Count 245 X10^3/uL (150-400); Red Blood Cell Count 4.35 X10^6/uL (4.5-5.9); Red Cell Distribution Width 14.9 % (11.6-14.8); White Blood Cell Count 9.8 X10^3/uL (4.5-11.0)
[2024-04-26 11:20] LABS: Hemoglobin A1C% w Est Avg Glu 6.7 % (4.0-6.0)
[2024-04-26 12:07] LABS: Alanine Aminotransferase 26 IU/L (<50); Albumin 3.8 g/dL (3.5-5.0); Alkaline Phosphatase 106 U/L (38-126); Aspartate Aminotransferase 25 IU/L (17-59); BUN Creatinine Ratio 14.8 (6-22); Bilirubin Total 1.2 mg/dL (0.2-1.3); Blood Urea Nitrogen 28 mg/dL (9-20); Calcium 9.6 mg/dL (8.4-10.2); Carbon Dioxide 19 mmol/L (22-32); Chloride 103 mmol/L (98-107); Estimated Glomerular Filt Rate 36 mL/min (>60); Globulin 3.7 g/dL (1.7-4.1); Glucose 125 mg/dL (80-110); HEMOLYSIS < 15 (0-50); Sodium 134 mmol/L (137-145); Total Protein 7.5 g/dL (6.3-8.2)
[2024-04-26 12:08] LABS: Potassium 5.4 mmol/L (3.4-5.1)
[2024-04-26 15:20] LABS: Creatinine Urine Random 196.16 mg/dL
[2024-04-26 15:26] LABS: Microalbumin Urine Random 16.5 mg/dL (0-1.6)
== END ==
PROVIDERS: PCP Family Medicine; Referring Provider Family Medicine; Visit Provider Family Medicine
DX: I48.92 Unspecified atrial flutter (principal); E11.21 Type 2 diabetes mellitus with diabetic nephropathy; T50.1X5A Adverse effect of loop [high-ceiling] diuretics, initial encounter; R79.9 Abnormal finding of blood chemistry, unspecified; E78.2 Mixed hyperlipidemia; I10 Essential (primary) hypertension
CPT/HCPCS: 36415; 80053; 82043; 82570; 83036; 85025

== ENCOUNTER → 2024-05-03 15:21 | Outpatient (CLI) | payer MEDICARE, MEDICAID, SELFPAY ==
[2019-11-06 09:12] VITALS: BMI 33.0
[2024-05-03 17:18] LABS: Alanine Aminotransferase 33 IU/L (<50); Albumin 3.7 g/dL (3.5-5.0); Alkaline Phosphatase 105 U/L (38-126); Aspartate Aminotransferase 29 IU/L (17-59); BUN Creatinine Ratio 13.8 (6-22); Bilirubin Total 1.1 mg/dL (0.2-1.3); Blood Urea Nitrogen 17 mg/dL (9-20); Calcium 9.4 mg/dL (8.4-10.2); Carbon Dioxide 24 mmol/L (22-32); Chloride 108 mmol/L (98-107); Cholesterol 122 mg/dL (140-199); Estimated Glomerular Filt Rate 60 mL/min (>60); Globulin 3.7 g/dL (1.7-4.1); Glucose 121 mg/dL (80-110); HDL Cholesterol 40 mg/dL (40-60); HEMOLYSIS < 15 (0-50); LDL Cholesterol Calculated 60 mg/dL (<100); Potassium 5.3 mmol/L (3.4-5.1); Sodium 139 mmol/L (137-145); Total Protein 7.4 g/dL (6.3-8.2); Triglycerides 108 mg/dL (35-150)
== END ==
PROVIDERS: PCP Family Medicine; Referring Provider Nurse Practitioner Family; Visit Provider Nurse Practitioner Family
DX: Z13.220 Encounter for screening for lipoid disorders (principal); N17.9 Acute kidney failure, unspecified
CPT/HCPCS: 36415; 80053; 80061

== ENCOUNTER → 2024-08-23 09:00 | Outpatient (CLI) | payer MEDICARE, MEDICAID, SELFPAY ==
[2019-11-06 09:12] VITALS: BMI 33.0
[2024-08-23 09:54] LABS: Hemoglobin A1C% w Est Avg Glu 7.1 % (4.0-6.0)
[2024-08-23 10:05] LABS: Alanine Aminotransferase 21 IU/L (<50); Albumin 4.3 g/dL (3.5-5.0); Albumin Globulin Ratio 1.2 (1.0-2.8); Alkaline Phosphatase 73 U/L (38-126); Aspartate Aminotransferase 21 IU/L (17-59); BUN Creatinine Ratio 41.1 (6-22); Bilirubin Total 0.7 mg/dL (0.2-1.3); Blood Urea Nitrogen 65 mg/dL (9-20); Calcium 9.1 mg/dL (8.4-10.2); Carbon Dioxide 21 mmol/L (22-32); Chloride 105 mmol/L (98-107); Estimated Glomerular Filt Rate 44 mL/min (>60); Globulin 3.5 g/dL (1.7-4.1); Glucose 163 mg/dL (70-99); HEMOLYSIS < 15 (0-50); Sodium 137 mmol/L (137-145); Total Protein 7.8 g/dL (6.3-8.2)
== END ==
PROVIDERS: PCP Family Medicine; Referring Provider Family Medicine; Visit Provider Family Medicine
DX: E11.21 Type 2 diabetes mellitus with diabetic nephropathy (principal); E11.319 Type 2 diabetes mellitus with unspecified diabetic retinopathy without macular edema; E11.42 Type 2 diabetes mellitus with diabetic polyneuropathy; I48.92 Unspecified atrial flutter; R60.0 Localized edema
CPT/HCPCS: 36415; 80053; 83036

== ENCOUNTER → 2024-09-26 08:58 | Outpatient (CLI) | payer MEDICARE, MEDICAID, SELFPAY ==
[2019-11-06 09:12] VITALS: BMI 33.0
[2024-09-26 10:10] LABS: Alanine Aminotransferase 28 IU/L (<50); Albumin 4.1 g/dL (3.5-5.0); Albumin Globulin Ratio 1.2 (1.0-2.8); Alkaline Phosphatase 69 U/L (38-126); Aspartate Aminotransferase 26 IU/L (17-59); BUN Creatinine Ratio 32.6 (6-22); Bilirubin Total 0.5 mg/dL (0.2-1.3); Blood Urea Nitrogen 46 mg/dL (9-20); Calcium 9.4 mg/dL (8.4-10.2); Carbon Dioxide 22 mmol/L (22-32); Chloride 105 mmol/L (98-107); Estimated Glomerular Filt Rate 51 mL/min (>60); Globulin 3.4 g/dL (1.7-4.1); Glucose 150 mg/dL (70-99); HEMOLYSIS < 15 (0-50); Potassium 5.5 mmol/L (3.4-5.1); Sodium 137 mmol/L (137-145); Total Protein 7.5 g/dL (6.3-8.2)
== END ==
PROVIDERS: PCP Family Medicine; Referring Provider Family Medicine; Visit Provider Family Medicine
DX: R60.0 Localized edema (principal); T50.1X5A Adverse effect of loop [high-ceiling] diuretics, initial encounter; E11.21 Type 2 diabetes mellitus with diabetic nephropathy
CPT/HCPCS: 36415; 80053

== ENCOUNTER → 2024-12-12 06:50 | Outpatient (CLI) | payer MEDICARE, MEDICAID, SELFPAY ==
[2019-11-06 09:12] VITALS: BMI 33.0
[2024-12-12 07:43] LABS: Hemoglobin A1C% w Est Avg Glu 7.2 % (4.0-6.0)
[2024-12-12 07:51] LABS: Alanine Aminotransferase 17 IU/L (<50); Albumin 4.0 g/dL (3.5-5.0); Albumin Globulin Ratio 1.1 (1.0-2.8); Alkaline Phosphatase 66 U/L (38-126); Blood Urea Nitrogen 51 mg/dL (9-20); Calcium 8.9 mg/dL (8.4-10.2); Carbon Dioxide 22 mmol/L (22-32); Chloride 102 mmol/L (98-107); Cholesterol 130 mg/dL (140-199); Estimated Glomerular Filt Rate 44 mL/min (>60); Globulin 3.6 g/dL (1.7-4.1); Glucose 161 mg/dL (70-99); HDL Cholesterol 40 mg/dL (40-60); HEMOLYSIS 66 (0-50); Potassium 4.9 mmol/L (3.4-5.1); Sodium 136 mmol/L (137-145); Total Protein 7.6 g/dL (6.3-8.2); Triglycerides 109 mg/dL (35-150)
[2024-12-12 11:22] LABS: Microalbumi Creatinin Ratio Ur 15.0 ug/mg CR (<30)
== END ==
PROVIDERS: PCP Family Medicine; Referring Provider Family Medicine; Visit Provider Family Medicine
DX: E11.21 Type 2 diabetes mellitus with diabetic nephropathy (principal); E78.2 Mixed hyperlipidemia; E87.5 Hyperkalemia
CPT/HCPCS: 36415; 80053; 80061; 82043; 82570; 83036